=== PATIENT | female | born 1930 | race Caucasian/White ===

== ENCOUNTER 2017-05-19 19:43 | Emergency (ER) | payer MEDICARE, MEDICAID ==
[2017-05-19] MEDS ORDERED: LIDOCAINE 5% (700 MG) TRANSDERMAL ADH..PATCH TP ONE (20:11)
--- NOTE | 2017-05-19 20:11 | ER Document Report ---
ED Medical Screen (RME) - General Chief Complaint: Fall Stated Complaint: FALL/BACK PAIN Time Seen by Provider: 05/19/17 20:09 TRAVEL OUTSIDE OF THE [place] IN LAST 30 DAYS: No - HPI Notes: 05/19/17 20:10 Patient with a trip and fall seen at urgent care sent to the ER for a CT scan of her back due to pain - Related Data Allergies/Adverse Reactions: No Known Allergies Allergy (Verified 05/19/17 19:52) Past Medical History - Past Medical History Cardiac Medical History: Reports: Hx Coronary Artery Disease, Hx Hypercholesterolemia, Hx Hypertension Denies: Hx Heart Attack Pulmonary Medical History: Denies: Hx Asthma, Hx Bronchitis, Hx COPD, Hx Pneumonia, Hx Tuberculosis Neurological Medical History: Denies: Hx Cerebrovascular Accident, Hx Seizures Renal/ Medical History: Denies: Hx Peritoneal Dialysis GI Medical History: Reports: Hx Gastroesophageal Reflux Disease. Denies: Hx Hepatitis, Hx Hiatal Hernia, Hx Ulcer Musculoskeltal Medical History: Reports Hx Arthritis Infectious Medical History: Denies: Hx Hepatitis Past Surgical History: Denies: Hx Hysterectomy, Hx Mastectomy, Hx Open Heart Surgery, Hx Pacemaker - Immunizations Hx Diphtheria, Pertussis, Tetanus Vaccination: Yes Review of Systems - Review of Systems Musculoskeletal: Back pain Physical Exam - Vital signs Vitals: Temp Pulse Resp BP Pulse Ox 98.1 F 60 16 153/61 H 94 05/19/17 19:52 05/19/17 19:52 05/19/17 19:52 05/19/17 19:52 05/19/17 19:52 - General General appearance: Appears well In distress: None Course - Vital Signs Vital signs: Temp Pulse Resp BP Pulse Ox 98.1 F 60 16 153/61 H 94 05/19/17 19:52 05/19/17 19:52 05/19/17 19:52 05/19/17 19:52 05/19/17 19:52
--- NOTE | 2017-05-19 20:42 | RADIOLOGY REPORT (SQ) ---
EXAM DESCRIPTION: CT LUMBAR SPINE WITHOUT COMPLETED DATE/TIME: 05/19/2017 8:31 pm REASON FOR STUDY: back pain COMPARISON: None. TECHNIQUE: Axial images acquired through the lumbar spine without intravenous contrast. Images revi ewed with lung, soft tissue and bone windows. Reconstructed coronal and sagittal MPR images reviewed . All images stored on PACS. All CT scanners at this facility use dose modulation, iterative reconstruction, and/or weight based d osing when appropriate to reduce radiation dose to as low as reasonably achievable (ALARA). [facility]: Dose Right [facility]: CareDose [facility]: Dose Right [facility]: Teradose 4D [facility]: [employer] RADIATION DOSE: mGy. LIMITATIONS: None. FINDINGS: SEGMENTATION: Normal. No transitional anatomy. ALIGNMENT: Normal. VERTEBRAL BODIES: Acute compression fracture involving the superior endplate of L1. Approximately 20 % loss of height. There is no encroachment of the spinal canal. The remainder of the lumbar vertebr ae are intact. DISCS: Disc space narrowing with vacuum change and osteophytes, most pronounced in the lower lumbar s pine. There is broad-based posterior disc bulging, in combination with facet arthropathy resulting i n spinal stenosis at L3-L4, L4-L5, and L5-S1. PEDICLES, TRANSVERSE PROCESSES: No fractures. No dislocation. No acute findings. FACETS, POSTERIOR ELEMENTS: No fractures. No dislocation. Facet arthropathy particularly in the low er lumbar spine. HARDWARE: None in the spine. VISUALIZED RIBS: No fractures. SOFT TISSUES: No significant or acute finding in adjacent soft tissues. OTHER: No other significant finding. IMPRESSION: 1. ACUTE COMPRESSION FRACTURE INVOLVING THE SUPERIOR ENDPLATE OF L1 WITH APPROXIMATELY 20% LOSS OF HE IGHT. NO ENCROACHMENT OF THE SPINAL CANAL. 2. CHRONIC DEGENERATIVE CHANGES. TECHNICAL DOCUMENTATION: JOB ID: [id number] Quality ID # [id number]: Final reports with documentation of one or more dose reduction techniques (e.g., Au tomated exposure control, adjustment of the mA and/or kV according to patient size, use of iterative reconstruction technique) 2010 [employer]- All Rights Reserved
[2017-05-19] MEDS ORDERED: HYDROCODONE/ACETAMINOPHEN 5-325 MG 6 TAB/DSPK PO PRN (21:01)
--- NOTE | 2017-05-19 21:01 | ER Document Report ---
ED Fall - General Mode of Arrival: Ambulatory Information source: Patient TRAVEL OUTSIDE OF THE [place] IN LAST 30 DAYS: No - HPI Patient complains to provider of: Lower Back Pain Occurred: This afternoon Where: Outdoors Context: Tripped Associated symptoms: Other - see notes above <JORGE BARAHONA - Last Filed: 05/19/17 21:03> <ALEKS HOPKINS - Last Filed: 05/19/17 22:29> - General Chief Complaint: Fall Stated Complaint: FALL/BACK PAIN Time Seen by Provider: 05/19/17 20:50 Notes: 86 year old female with history of arthritis presents to the ED complaining of lower back pain that started earlier this afternoon after tripping over her doorstep. Patient denies loss of consciousness or head trauma. Patient reports that her pain is well controlled. (JORGE BARAHONA) - Related data Allergies/Adverse Reactions: No Known Allergies Allergy (Verified 05/19/17 19:52) Past Medical History - General Information source: Patient - Social History Smoking Status: Never Smoker Chew tobacco use (# tins/day): No Frequency of alcohol use: None Drug Abuse: None Family History: Reviewed & Not Pertinent Patient has suicidal ideation: No Patient has homicidal ideation: No - Past Medical History Cardiac Medical History: Reports: Hx Coronary Artery Disease, Hx Hypercholesterolemia, Hx Hypertension Denies: Hx Heart Attack Pulmonary Medical History: Denies: Hx Asthma, Hx Bronchitis, Hx COPD, Hx Pneumonia, Hx Tuberculosis Neurological Medical History: Denies: Hx Cerebrovascular Accident, Hx Seizures Renal/ Medical History: Denies: Hx Peritoneal Dialysis GI Medical History: Reports: Hx Gastroesophageal Reflux Disease. Denies: Hx Hepatitis, Hx Hiatal Hernia, Hx Ulcer Musculoskeltal Medical History: Reports Hx Arthritis Infectious Medical History: Denies: Hx Hepatitis Surgical Hx: Negative Past Surgical History: Denies: Hx Hysterectomy, Hx Mastectomy, Hx Open Heart Surgery, Hx Pacemaker - Immunizations Hx Diphtheria, Pertussis, Tetanus Vaccination: Yes Hx Pneumococcal Vaccination: 08/30/09 <JORGE BARAHONA - Last Filed: 05/19/17 21:03> Review of Systems - Review of Systems Constitutional: No symptoms reported EENT: No symptoms reported Cardiovascular: No symptoms reported Respiratory: No symptoms reported Gastrointestinal: No symptoms reported Genitourinary: No symptoms reported Female Genitourinary: No symptoms reported Musculoskeletal: See HPI, Back pain - lower Skin: No symptoms reported Hematologic/Lymphatic: No symptoms reported Neurological/Psychological: No symptoms reported. denies: Lost consciousness -: Yes All other systems reviewed and negative <JORGE BARAHONA - Last Filed: 05/19/17 21:03> Physical Exam - General General appearance: Alert In distress: None - HEENT Head: Normocephalic, Atraumatic Eyes: Normal Extraocular movements intact: Yes Pupils: PERRL - Respiratory Respiratory status: No respiratory distress Breath sounds: Normal - Cardiovascular Rhythm: Regular Heart sounds: Normal auscultation - Abdominal Inspection: Normal - Back Back: Tender - Tenderness to palpation over L1 - Extremities General upper extremity: Normal inspection, Normal ROM General lower extremity: Normal inspection, Normal ROM - Neurological Neuro grossly intact: Yes Cognition: Normal Orientation: AAOx4 Kenny Coma Scale Eye Opening: Spontaneous Kenny Coma Scale Verbal: Oriented Kenny Coma Scale Motor: Obeys Commands [place] Coma Scale Total: 15 Speech: Normal - Psychological Associated symptoms: Normal affect, Normal mood - Skin Skin Temperature: Warm Skin Moisture: Dry Skin Color: Normal <JORGE BARAHONA - Last Filed: 05/19/17 21:03> Course <JORGE BARAHONA - Last Filed: 05/19/17 21:03> - Diagnostic Test Radiology reviewed: Reports reviewed <ALEKS HOPKINS - Last Filed: 05/19/17 22:29> - Re-evaluation Re-evalutation: 05/19/17 Patient is an 86-year-old female who tripped and fell. Patient has point tenderness and complains of pain over L1. States that Lidoderm patch is working well. Patient is unsure if she is supposed to take pain medication. She will ask her doctor tomorrow. Patient is neurovascularly intact. No other injuries. Stable for discharge. Return if any worsening or concerning symptoms. Patient and family understand and agree with this plan. (ALEKS HOPKINS) - Vital Signs Vital signs: Temp Pulse Resp BP Pulse Ox 97.4 F 59 L 13 148/73 H 95 05/19/17 21:00 05/19/17 21:00 05/19/17 21:00 05/19/17 21:00 05/19/17 21:00 Discharge <JORGE BARAHONA - Last Filed: 05/19/17 21:03> <ALEKS HOPKINS - Last Filed: 05/19/17 22:29> - Discharge Clinical Impression: Vertebral fracture, closed Qualifiers: Encounter type: initial encounter Fracture of vertebra location: lumbar Lumbar vertebra fracture level: L1 Fracture morphology: wedge compression Qualified Code(s): S32.010A - Wedge compression fracture of first lumbar vertebra, initial encounter for closed fracture Condition: Stable Disposition: HOME, SELF-CARE Instructions: Back Injury with Fracture ([facility]) Additional Instructions: Please follow-up with your doctor tomorrow. Please take a copy of the report with you. Prescriptions: Oxycodone HCl/Acetaminophen [Percocet 5-325 mg Tablet] 1 tab PO Q8HP PRN #15 tablet PRN Reason: Lidocaine [Lidoderm 5% (700 mg) Transdermal Patch] 1 patch TP DAILY #30 adh..patch Scribe Attestation: 05/19/17 22:28 I personally performed the services described in the documentation, reviewed and edited the documentation which was dictated to the scribe in my presence, and it accurately records my words and actions. (ALEKS HOPKINS) Scribe Documentation - Scribe Written by Joanneibe:: Marcel Casas, [id number] acting as scribe for :: Madhu <JORGE BARAHONA - Last Filed: 05/19/17 21:03>
[2017-05-19 22:18] VITALS: BP 148/73
== END 2017-05-19 21:15 | disposition home or self-care (01) ==
LOC: ER 19:43
DX: S32.010A Wedge compression fracture of first lumbar vertebra, initial encounter for closed fracture (principal); W01.0XXA Fall on same level from slipping, tripping and stumbling without subsequent striking against object, initial encounter; I25.10 Atherosclerotic heart disease of native coronary artery without angina pectoris; I10 Essential (primary) hypertension
CPT/HCPCS: 99283; 72131; A9270

== ENCOUNTER 2017-05-24 10:48 | Inpatient (IN) | payer MEDICARE, MEDICAID ==
[2017-05-24] MEDS ORDERED: IBUPROFEN 600 MG TABLET PO ONE (11:03)
[2017-05-24] MEDS ORDERED: OXYCODONE-ACETAMINOPHEN 5-325 MG TABLET PO ONE (11:03)
--- NOTE | 2017-05-24 11:03 | ER Document Report ---
ED GI/ - General Chief Complaint: Urinary Problem Stated Complaint: BACK PAIN,BLOOD IN URINE Time Seen by Provider: 05/24/17 10:57 Notes: The patient is an 86-year-old female, past medical history hypertension, L1 compression fracture last week after fall, on Brillinta for ?A.fib?, Presents with worsening left flank pain and 2 days of hematuria. She is taking Percocet for her pain control saw her primary care physician who has referred her to a data warehousing specialist for her compression fracture. Patient denies nausea, vomiting , syncope, numbness, tingling, diarrhea, constipation, headache or dysuria. TRAVEL OUTSIDE OF THE [place] IN LAST 30 DAYS: No - Related Data Allergies/Adverse Reactions: No Known Allergies Allergy (Verified 05/24/17 10:52) Past Medical History - General Information source: Patient - Social History Smoking Status: Never Smoker Family History: Reviewed & Not Pertinent Patient has suicidal ideation: No Patient has homicidal ideation: No - Past Medical History Cardiac Medical History: Reports: Hx Coronary Artery Disease, Hx Hypercholesterolemia, Hx Hypertension Denies: Hx Heart Attack Pulmonary Medical History: Denies: Hx Asthma, Hx Bronchitis, Hx COPD, Hx Pneumonia, Hx Tuberculosis Neurological Medical History: Denies: Hx Cerebrovascular Accident, Hx Seizures Renal/ Medical History: Denies: Hx Peritoneal Dialysis GI Medical History: Reports: Hx Gastroesophageal Reflux Disease. Denies: Hx Hepatitis, Hx Hiatal Hernia, Hx Ulcer Musculoskeltal Medical History: Reports Hx Arthritis Infectious Medical History: Denies: Hx Hepatitis Past Surgical History: Denies: Hx Hysterectomy, Hx Mastectomy, Hx Open Heart Surgery, Hx Pacemaker - Immunizations Hx Diphtheria, Pertussis, Tetanus Vaccination: Yes Hx Pneumococcal Vaccination: 08/30/09 Review of Systems - Review of Systems Notes: REVIEW OF SYSTEMS: CONSTITUTIONAL: -fevers, -chills EENT: -eye pain, -difficulty swallowing, -nasal congestion CARDIOVASCULAR:-chest pain, -syncope. RESPIRATORY: -cough, -SOB GASTROINTESTINAL: -abdominal pain, - nausea, -vomiting, -diarrhea GENITOURINARY: -dysuria, +hematuria MUSCULOSKELETAL: +back pain, -neck pain SKIN: -rash or skin lesions. HEMATOLOGIC: -easy bruising or bleeding. LYMPHATIC: -swollen, enlarged glands. NEUROLOGICAL: -altered mental status or loss of consciousness, -headache, - neurologic symptoms PSYCHIATRIC: -anxiety, -depression. ALL OTHER SYSTEMS REVIEWED AND NEGATIVE. Physical Exam - Vital signs Vitals: Temp Pulse Resp BP Pulse Ox 97.5 F 66 16 109/62 99 05/24/17 10:53 05/24/17 10:53 05/24/17 10:53 05/24/17 10:53 05/24/17 10:53 - Notes Notes: PHYSICAL EXAMINATION: GENERAL: Well-appearing, well-nourished and in no acute distress. HEAD: Atraumatic, normocephalic. EYES: Pupils equal round and reactive to light, extraocular movements intact, sclera anicteric, conjunctiva are normal. ENT: nares patent, oropharynx clear without exudates. Moist mucous membranes. NECK: Normal range of motion, supple without lymphadenopathy LUNGS: Breath sounds clear to auscultation bilaterally and equal. No wheezes rales or rhonchi. HEART: Regular rate and rhythm without murmurs ABDOMEN: Soft, nontender, normoactive bowel sounds. No guarding, no rebound. No masses appreciated. BACK: Midline lumbar tenderness, mild left CVA tenderness, no ecchymosis EXTREMITIES: Normal range of motion, no pitting or edema. No cyanosis. NEUROLOGICAL: Cranial nerves grossly intact. Normal speech, normal gait. Normal sensory and motor exams. PSYCH: Normal mood, normal affect. SKIN: Warm, Dry, normal turgor, no rashes or lesions noted. Course - Re-evaluation Re-evalutation: With leukocytosis and CT exam findings, patient was moved back to the main ER for further evaluation. I have greeted and performed a rapid initial assessment of this patient. A comprehensive ED assessment and evaluation of the patient, analysis of test results and completion of the medical decision making process will be conducted by additional ED providers. - Vital Signs Vital signs: Temp Pulse Resp BP Pulse Ox 97.5 F 66 16 109/62 99 05/24/17 10:53 05/24/17 10:53 05/24/17 10:53 05/24/17 10:53 05/24/17 10:53 - Laboratory Result Diagrams: 05/24/17 11:27 05/24/17 11:27 Laboratory results interpreted by me: 05/24/17 05/24/17 05/24/17 11:27 11:27 14:10 WBC 24.8 H Band Neutrophils % 7 H Lymphocytes % (Manual) 3 L Monocytes % (Manual) 16 H Abs Neuts (Manual) 20.1 H Abs Monocytes (Manual) 4.0 H Sodium 135.8 L Chloride 97 L Carbon Dioxide 21 L BUN 44 H Creatinine 2.29 H Est GFR ( Amer) 25 L Est GFR (Non-Af Amer) 20 L Glucose 195 H AST 72 H ALT 124 H Alkaline Phosphatase 145 H Lipase 19.8 L Urine Ketones TRACE H Urine Blood SMALL H Urine Ascorbic Acid 40 H Discharge - Discharge Clinical Impression: Colitis presumed to be due to infection, Vertebral fracture, closed Condition: Good Disposition: ADMITTED INPATIENT
[2017-05-24 12:00] LABS: HEMATOCRIT 41.7 % (36.0-47.0); HEMOGLOBIN 13.4 g/dL (12.0-15.5); HGB HCT DIFFERENCE -1.5; MEAN CORPUSCULAR HEMOGLOBIN 29.7 pg (27.0-33.4); MEAN CORPUSCULAR HGB CONC 32.1 g/dL (32.0-36.0); MEAN CORPUSCULAR VOLUME 93 fl (80-97); RED CELL DISTRIBUTION WIDTH 12.9 % (11.5-14.0); WHITE BLOOD COUNT 24.8 10^3/uL (4.0-10.5)
[2017-05-24 12:01] LABS: ALANINE AMINOTRANSFERASE 124 U/L (9-52); ALKALINE PHOSPHATASE 145 U/L (38-126); ANION GAP 18 (5-19); ASPARTATE AMINO TRANSFERASE 72 U/L (14-36); BILIRUBIN,DIRECT 0.4 mg/dL (0.0-0.4); BILIRUBIN,TOTAL 0.9 mg/dL (0.2-1.3); BLOOD UREA NITROGEN 44 mg/dL (7-20); CALCIUM 9.3 mg/dL (8.4-10.2); CARBON DIOXIDE 21 mmol/L (22-30); CHLORIDE 97 mmol/L (98-107); CREATININE RESULT 2.29 mg/dL (0.52-1.25); GLUCOSE 195 mg/dL (75-110); LIPASE 19.8 U/L (23-300); POTASSIUM 4.4 mmol/L (3.6-5.0); SODIUM 135.8 mmol/L (137-145); TOTAL PROTEIN 7.1 g/dL (6.3-8.2)
[2017-05-24 12:29] LABS: BAND NEUTROPHILS % (MANUAL) 7 % (3-5); BASOPHILS % (MANUAL) 0 % (0-2); EOSINOPHILS % (MANUAL) 0 % (0-6); LYMPHOCYTES % (MANUAL) 3 % (13-45); NUCLEATED RED BLOOD CELLS 1 /100 WBC (0); TOTAL CELLS COUNTED 100
[2017-05-24 12:30] LABS: POLYCHROMASIA SLIGHT; TOXIC GRANULATION SLIGHT; TOXIC VACUOLATION PRESENT
--- NOTE | 2017-05-24 13:04 | RADIOLOGY REPORT (SQ) ---
EXAM DESCRIPTION: CT ABD/PELVIS NO ORAL OR IV COMPLETED DATE/TIME: 05/24/2017 12:43 pm REASON FOR STUDY: left flank pain COMPARISON: Lumbar spine CT from several days ago. TECHNIQUE: CT scan of the abdomen and pelvis performed without intravenous or oral contrast. Images reviewed with lung, soft tissue, and bone windows. Reconstructed coronal and sagittal MPR images revi ewed. All images stored on PACS. All CT scanners at this facility use dose modulation, iterative reconstruction, and/or weight based d osing when appropriate to reduce radiation dose to as low as reasonably achievable (ALARA). [facility]: Dose Right [facility]: CareDose [facility]: Dose Right [facility]: Teradose 4D [facility]: [employer] RADIATION DOSE: Up-to-date CT equipment and radiation dose reduction techniques were employed. CTDIv ol: 9.9 mGy. DLP: 555 mGy-cm.mGy. LIMITATIONS: None. FINDINGS: LOWER CHEST: Minimal reticulonodular infiltrates in the lower lobes, acuity indeterminate. NON-CONTRASTED LIVER, SPLEEN, ADRENALS: Liver and spleen generally unremarkable. Minimal nodular thi ckening in the left adrenal without discrete mass. PANCREAS: No masses. No peripancreatic inflammatory changes. GALLBLADDER: Gallbladder distention without overt wall thickening or pericholecystic fluid. At least 1 calcified gallstone. RIGHT KIDNEY AND URETER: No solid masses. No significant calcification. No hydronephrosis or hydroure ter. LEFT KIDNEY AND URETER: No solid masses. No significant calcification. No hydronephrosis or hydrouret er. AORTA AND RETROPERITONEUM: Dense aortic calcification without aneurysm. No retroperitoneal mass or a denopathy. BOWEL AND PERITONEAL CAVITY: Pronounced wall thickening with mild pericolonic fat stranding. This in volves the majority of the transverse colon, splenic flexure and proximal descending colon. No sugge stion of significant diverticular disease through these areas. No dilated small bowel loops. No asc ites or adenopathy. APPENDIX: Normal. PELVIS, BLADDER, AND ABDOMINAL WALL:Numerous calcified phleboliths. No gross bladder mass or stones. BONES: Known L1 mild compression fracture. OTHER: No other significant finding. IMPRESSION: 1. Extensive colitis, predominantly in the transverse colon and proximal descending colo n. Differential includes infectious/ inflammatory and vascular etiologies. No significant diverticu losis through this area. 2. Cholelithiasis with distended gallbladder. 3. Atherosclerosis. 4. Know n L1 recent compression fracture. TECHNICAL DOCUMENTATION: JOB ID: [id number] Quality ID # [id number]: Final reports with documentation of one or more dose reduction techniques (e.g., Au tomated exposure control, adjustment of the mA and/or kV according to patient size, use of iterative reconstruction technique) 2010 [employer]]- All Rights Reserved
[2017-05-24] MEDS ORDERED: CIPROFLOXACIN 400 MG/D5W RTU 200 ML IV ONE (13:20)
[2017-05-24] MEDS ORDERED: METRONIDAZOLE 500 MG/NS RTU 100 ML IV ONE (13:20)
--- NOTE | 2017-05-24 14:12 | ER Document Report ---
ED GI/ - General Chief Complaint: Urinary Problem Stated Complaint: BACK PAIN,BLOOD IN URINE Time Seen by Provider: 05/24/17 10:57 Mode of Arrival: Ambulatory Information source: Patient TRAVEL OUTSIDE OF THE [place] IN LAST 30 DAYS: No - HPI Patient complains to provider of: Hematuria, Other - BACK PAIN Onset: This morning Timing/Duration: Sudden Quality of pain: Dull, Sharp - W/ MOVEMENT Severity at maximum: Severe Severity in ED: Moderate Context: Other - KNOWN RECENT Fx T-11 Location: Low back Associated symptoms: Hematuria, Loss of appetite. denies: Chills, Diarrhea, Fever, Nausea Exacerbated by: Movement Relieved by: Remaining still Similar symptoms previously: No Recently seen / treated by doctor: Yes - OMKorin E.DShiv - Related Data Allergies/Adverse Reactions: No Known Allergies Allergy (Verified 05/24/17 10:52) Past Medical History - General Information source: Patient - Social History Smoking Status: Never Smoker Cigarette use (# per day): No Chew tobacco use (# tins/day): No Frequency of alcohol use: None Drug Abuse: None Lives with: Family Family History: Reviewed & Not Pertinent Patient has suicidal ideation: No Patient has homicidal ideation: No - Past Medical History Cardiac Medical History: Reports: Hx Coronary Artery Disease, Hx Hypercholesterolemia, Hx Hypertension Denies: Hx Heart Attack Pulmonary Medical History: Denies: Hx Asthma, Hx Bronchitis, Hx COPD, Hx Pneumonia, Hx Tuberculosis Neurological Medical History: Denies: Hx Cerebrovascular Accident, Hx Seizures Renal/ Medical History: Denies: Hx Peritoneal Dialysis GI Medical History: Reports: Hx Gastroesophageal Reflux Disease. Denies: Hx Hepatitis, Hx Hiatal Hernia, Hx Ulcer Musculoskeltal Medical History: Reports Hx Arthritis Infectious Medical History: Denies: Hx Hepatitis Past Surgical History: Denies: Hx Hysterectomy, Hx Mastectomy, Hx Open Heart Surgery, Hx Pacemaker - Immunizations Hx Diphtheria, Pertussis, Tetanus Vaccination: Yes Hx Pneumococcal Vaccination: 08/30/09 Review of Systems - Review of Systems Constitutional: No symptoms reported EENT: No symptoms reported Cardiovascular: No symptoms reported Respiratory: No symptoms reported Gastrointestinal: See HPI Genitourinary: See HPI Female Genitourinary: No symptoms reported Musculoskeletal: See HPI Skin: No symptoms reported Neurological/Psychological: No symptoms reported Physical Exam - Vital signs Vitals: Temp Pulse Resp BP Pulse Ox 97.5 F 66 16 109/62 99 07/04/17 10:53 05/24/17 10:53 05/24/17 10:53 05/24/17 10:53 05/24/17 10:53 Interpretation: Normal. No: Tachycardic, Tachypneic, Febrile - General General appearance: Appears well, Alert In distress: None - HEENT Head: Normocephalic Eyes: Normal Conjunctiva: Normal Ears: Normal Nasal: Normal Mouth/Lips: Normal Mucous membranes: Normal Neck: Normal - Respiratory Respiratory status: No respiratory distress Breath sounds: Normal - Cardiovascular Rhythm: Regular - Abdominal Inspection: Normal Distension: No distension Bowel sounds: Hypoactive Tenderness: Tender - SLIGHT, UPPER & L. SIDE - Extremities General upper extremity: Normal inspection General lower extremity: Normal inspection - Neurological Neuro grossly intact: Yes Cognition: Normal Orientation: AAOx4 - Psychological Associated symptoms: Normal affect, Normal mood - Skin Skin Temperature: Warm Skin Moisture: Dry Skin Color: Normal Skin Turgor: Elastic Course - Vital Signs Vital signs: Temp Pulse Resp BP Pulse Ox 97.5 F 66 16 109/62 99 05/24/17 10:53 05/24/17 10:53 05/24/17 10:53 05/24/17 10:53 05/24/17 10:53 - Laboratory Result Diagrams: 05/24/17 11:27 05/24/17 11:27 Laboratory results interpreted by me: 05/24/17 05/24/17 05/24/17 11:27 11:27 14:10 WBC 24.8 H Band Neutrophils % 7 H Lymphocytes % (Manual) 3 L Monocytes % (Manual) 16 H Abs Neuts (Manual) 20.1 H Abs Monocytes (Manual) 4.0 H Sodium 135.8 L Chloride 97 L Carbon Dioxide 21 L BUN 44 H Creatinine 2.29 H Est GFR ( Amer) 25 L Est GFR (Non-Af Amer) 20 L Glucose 195 H AST 72 H ALT 124 H Alkaline Phosphatase 145 H Lipase 19.8 L Urine Ketones TRACE H Urine Blood SMALL H Urine Ascorbic Acid 40 H - Consults DR. FINK Time consulted: 15:35 Consulted provider: will come to ER Discharge - Discharge Clinical Impression: Colitis presumed to be due to infection Vertebral fracture, closed Qualifiers: Encounter type: initial encounter Fracture of vertebra location: lumbar Lumbar vertebra fracture level: L1 Fracture morphology: wedge compression Qualified Code(s): S32.010A - Wedge compression fracture of first lumbar vertebra, initial encounter for closed fracture Condition: Good Disposition: ADMITTED INPATIENT Admitting Provider: Hospitalist Unit Admitted: IMCU Referrals: CHRIS CLANCY MD [Primary Care Provider] - Follow up as needed
[2017-05-24 14:53] LABS: APPEARANCE,URINE SLIGHTLY-CLOUDY; BILIRUBIN,URINE NEGATIVE (NEGATIVE); GLUCOSE, URINE NEGATIVE (NEGATIVE); KETONES,URINE TRACE mg/dL (NEGATIVE); LEUKOCYTE ESTERASE,URINE NEGATIVE (NEGATIVE); NITRITE,URINE NEGATIVE (NEGATIVE); PROTEIN,URINE NEGATIVE (NEGATIVE); URINE SPECIFIC GRAVITY 1.019; UROBILINOGEN,URINE NEGATIVE mg/dL (<2.0)
[2017-05-24] MEDS ORDERED: ACETAMINOPHEN 325 MG TABLET PO PRN (16:44)
[2017-05-24] MEDS ORDERED: OXYCODONE-ACETAMINOPHEN 5-325 MG TABLET PO PRN (16:44)
[2017-05-24] MEDS ORDERED: TEMAZEPAM 15 MG CAPSULE PO PRN (16:44)
[2017-05-24] MEDS ORDERED: MAGNESIUM HYDROXIDE SUSP 30 ML UDCUP PO PRN (16:44)
[2017-05-24] MEDS ORDERED: ONDANSETRON HCL INJ/PF 4 MG/2 ML SDV IV PRN (16:44)
[2017-05-24] MEDS ORDERED: TEMAZEPAM 7.5 MG CAPSULE PO PRN (16:44)
--- NOTE | 2017-05-24 16:44 | PDOC H&P ---
History of Present Illness Admission Date/PCP: 05/24/17 16:12 [facility] Patient complains of: Blood in her underwear. History of Present Illness: SHOAIB NICOLAS is a 86 year old female presented to the hospital with 2 episodes of bright red blood that appeared in her underwear. She is fairly certain that this happened with urination. She does not think that this is vaginal bleeding or rectal bleeding. She also presents with pain in her lower back. She tripped and fell last . She came to the emergency department and had a CT scan and was told that she had a compression fracture. She was discharged on medications for pain. She then developed nausea with vomiting after starting the pain pills. She has not been able to eat or drink. Pills are not working for her back. Yesterday, she went to see her physician and had 2 soft stools but no diarrhea since. She has not had any fevers, chills , sweats. She actually denies abdominal pain. She states that she has chronically been incontinent but she feels like she might be urinating less. Past Medical History Cardiac Medical History: Reports: Coronary Artery Disease, Hyperlipidema, Hypertension Denies: Myocardial Infarction Pulmonary Medical History: Denies: Asthma, Bronchitis, Chronic Obstructive Pulmonary Disease (COPD), Pneumonia, Tuberculosis Neurological Medical History: Denies: Seizures GI Medical History: Reports: Gastroesophageal Reflux Disease Denies: Hepatitis, Hiatal Hernia Musculoskeltal Medical History: Reports: Arthritis Hematology: Denies: Anemia, Sickle Cell Disease Past Surgical History Past Surgical History: Denies: Amputation, Hysterectomy, Mastectomy, Pacemaker Social History Lives with: Family Smoking Status: Never Smoker Hx Recreational Drug Use: No Hx Prescription Drug Abuse: No Family History Family History: Reviewed & Not Pertinent Parental Family History Reviewed: Yes - Father HTN and heart disease Children Family History Reviewed: NA Sibling(s) Family History Reviewed.: NA Medication/Allergy Home Medications: Chlorthalidone [Chlorthalidone 25 mg Tablet] 25 mg PO 02/20/12 Dabigatran Etexilate Mesylate [Pradaxa 75 Mg Capsule] 75 mg PO 02/20/12 Diltiazem HCl [Dilt-Cd] 240 mg PO DAILY 02/20/12 Lisinopril [Prinivil 40 mg Tablet] 40 mg PO DAILY 02/20/12 Metoprolol Tartrate [Lopressor 50 mg Tablet] 50 mg PO 02/20/12 Omeprazole [Prilosec] 20 mg PO DAILY 02/20/12 Rosuvastatin Calcium [Crestor] 10 mg PO DAILY 02/20/12 Simvastatin [Zocor 10 mg Tablet] 10 mg PO QHS 02/20/12 Alendronate Sodium [Fosamax] 70 mg PO 07/07/12 Lidocaine [Lidoderm 5% (700 mg) Transdermal Patch] 1 patch TP DAILY #30 adh..patch 05/19/17 Oxycodone HCl/Acetaminophen [Percocet 5-325 mg Tablet] 1 tab PO Q8HP PRN #15 tablet 05/19/17 Allergies/Adverse Reactions: No Known Allergies Allergy (Verified 05/24/17 10:52) Review of Systems Constitutional: PRESENT: anorexia, fatigue Cardiovascular: PRESENT: palpitations Musculoskeletal: PRESENT: back pain Physical Exam Vital Signs: Temp Pulse Resp BP Pulse Ox 97.5 F 66 16 109/62 99 05/24/17 10:53 05/24/17 10:53 05/24/17 10:53 05/24/17 10:53 05/24/17 10:53 General appearance: PRESENT: no acute distress, cooperative Head exam: PRESENT: atraumatic Eye exam: PRESENT: EOMI Mouth exam: PRESENT: moist, neck supple, tongue midline Respiratory exam: PRESENT: crackles Cardiovascular exam: PRESENT: RRR GI/Abdominal exam: PRESENT: normal bowel sounds, soft Rectal exam: PRESENT: deferred Musculoskeletal exam: PRESENT: ambulatory Neurological exam: PRESENT: alert, awake Additional comments: Patient has multiple skin lesions on her face. She recently had several possible skin cancers removed on her face. Results Impressions: Abdomen/Pelvis CT 05/24/17 12:25 IMPRESSION: 1. Extensive colitis, predominantly in the transverse colon and proximal descending colon. Differential includes infectious/ inflammatory and vascular etiologies. No significant diverticulosis through this area. 2. Cholelithiasis with distended gallbladder. 3. Atherosclerosis. 4. Known L1 recent compression fracture. Assessment & Plan - Diagnosis (1) Leucocytosis Is this a current diagnosis for this admission?: Yes (2) Hematuria Is this a current diagnosis for this admission?: Yes (3) Colitis presumed to be due to infection Is this a current diagnosis for this admission?: Yes (4) Vertebral fracture, closed Qualifiers: Encounter type: initial encounter Fracture of vertebra location: lumbar Lumbar vertebra fracture level: L1 Fracture morphology: wedge compression Qualified Code(s): S32.010A - Wedge compression fracture of first lumbar vertebra, initial encounter for closed fracture Is this a current diagnosis for this admission?: Yes - Time Time Spent: 30 to 50 Minutes Medications reviewed and adjusted accordingly: Yes Anticipated discharge: Home Within: within 72 hours - Inpatient Certification Medical Necessity: Need for IV Antibiotics - Plan Summary Plan Summary: We will need to be admitted to the hospital for intravenous antibiotics. I will continue ciprofloxacin and Flagyl. However, the differential diagnosis certainly does include ischemic colitis. She will need a mesenteric Doppler. Vascular surgery will be involved when available. I am concerned that the hematuria may actually be bright red blood from her rectum. A rectal exam will be performed if not already done. Urinalysis will be sent for microscopic exam and culture. Blood cultures will be drawn. The patient will be made n.p.o. until she is better. Her prognosis is fair.
[2017-05-24] MEDS ORDERED: 1/2 NORMAL SALINE 1,000 ML IV PRN (17:05)
[2017-05-24] MEDS: METRONIDAZOLE 500 MG/NS RTU 100 ML IV SCH (18:54)
[2017-05-24] MEDS: CIPROFLOXACIN 400 MG/D5W RTU 400 MG/200 ML RTUPB IV SCH (21:27)
[2017-05-24] MEDS ORDERED: NORMAL SALINE 1000 ML 1,000 ML IV PRN (21:37)
[2017-05-24] MEDS ORDERED: NORMAL SALINE 1000 ML 1,000 ML IV ONE (21:45)
[2017-05-24] MEDS ORDERED: ATORVASTATIN CALCIUM 20 MG TABLET PO SCH (22:00)
--- NOTE | 2017-05-24 22:58 | CONSULTATION REPORT E ---
Consultation Report NAME: SHOAIB NICOLAS : 1930 AGE: 86Y DATE: 05/24/2017 ROOM: 302 A TO: YOUNG COOPER M.D. FROM: RACQUEL ANDREW M.D. Requesting Physician REASON FOR CONSULTATION: Thank you for asking me to see this 86-year-old female who has a history of fall a week ago as she tripped on a porch. She sustained a back fracture. Subsequently the patient has been complaining of generalized malaise, abdomen discomfort. The patient reports she had 1-2 bowel movements with diarrhea as well as blood. She was seen in the emergency room today and an abdominal and pelvis CT scan was done revealing the presence of diffuse transverse and descending colitis. I was consulted because of the above symptoms and findings Currently, the patient complains of poor appetite. She reports mild abdominal left-sided pain. Denies nausea, vomiting. She has had 2 bowel movement with bright blood per rectum today. PAST MEDICAL HISTORY: Coronary artery disease, hyperlipidemia, hypertension, bronchitis, COPD, pneumonia, history of TB, GERD, arthritis, atrial fibrillation. SOCIAL HISTORY: She lives with family. She denies abuse of alcohol, drugs, or tobacco. FAMILY HISTORY: Has been investigated and is noncontributory to her current condition. However, her father suffered from hypertension and heart disease. MEDICATIONS: Home medications include chlortalidone at 25 mg p.o. daily, Pradaxa 75 mg p.o. daily, diltiazem 240 mg p.o. daily, lisinopril 40 mg p.o. daily, metoprolol 50 mg p.o. daily, omeprazole 20 mg p.o. daily, Crestor 10 mg p.o. daily, Zocor 10 mg p.o. at bedtime, Fosamax 70 mg p.o. weekly, lidocaine 5% transdermal patch to be used p.r.n. to the back. ALLERGIES: None. REVIEW OF SYSTEMS: Is significant for atrial fibrillation, back pain, hypertension, hypercholesterolemia, osteoporosis. PHYSICAL EXAMINATION: HEENT: Second through XII cranial nerves are normal. NECK: Supple without masses. CHEST: Symmetric bilaterally. LUNGS: Clear to auscultation bilaterally. HEART: Regular rate and rhythm. ABDOMEN: Obese, slightly distended, tender in the left upper quadrant. Positive bowel sounds. No peritoneal signs identified. EXTREMITIES: Upper and lower extremities are equal, symmetric bilaterally without masses. NEUROLOGICAL SYSTEM: Equal, symmetric bilaterally without deficits. REVIEW OF LABORATORIES: CT scan abdomen and pelvis reveals extensive colitis, predominantly in the transverse colon and proximal descending colon with cholelithiasis. White blood cell count 24.8, H and H 13 and 41 respectively, and platelet count 169. Urinalysis shows trace of ketones, otherwise is overall negative. Electrolytes; sodium 135, potassium 4.4, BUN and creatinine elevated at 44 and 2.9 respectively. Liver profile shows an elevated AST, ALT, alkaline phosphatase of 72, 124, and 145 respectively. Total bilirubin of 0.9. Lipase is 19. ASSESSMENT: 1. Abdominal pain, left upper quadrant. 2. Bloody diarrhea, multiple bouts yesterday and today. 3. Multiple medical problems including atrial fibrillation and the patient is currently on Pradaxa. PLAN: 1. I am recommending to keep the patient n.p.o. 2. Aggressive IV hydration. I will give her 1 L of normal saline for a normal saline at 125 mL per hour due to elevated BUN and creatinine. 3. I will hold off the Pradaxa as you are doing. 4. Continue the current antibiotic regimen. 5. We will follow the patient daily and intervene as needed. However, at this point no surgical intervention is contemplated. 6. Agree with stool cultures and C. Difficilis toxin. DICTATING PHYSICIAN: YOUNG COOPER M.D. [id number] PHY#: [id number] ID: [id number] JOB#: [id number] ACCT: [id number] cc:YOUNG COOPER M.D. > [facility]
[2017-05-25] MEDS: METRONIDAZOLE 500 MG/NS RTU 100 ML IV SCH ×5 (00:49→23:53)
[2017-05-25] MEDS ORDERED: NORMAL SALINE 1000 ML 1,000 ML IV ONE ×2 (01:15→02:45)
[2017-05-25 03:20] LABS: ANION GAP 12 (5-19); BLOOD UREA NITROGEN 49 mg/dL (7-20); CALCIUM 7.1 mg/dL (8.4-10.2); CARBON DIOXIDE 19 mmol/L (22-30); CHLORIDE 103 mmol/L (98-107); CREATININE RESULT 2.46 mg/dL (0.52-1.25); GLUCOSE 113 mg/dL (75-110); MAGNESIUM 1.5 mg/dL (1.6-2.3); SODIUM 133.6 mmol/L (137-145)
[2017-05-25 03:24] LABS: POTASSIUM 3.3 mmol/L (3.6-5.0)
[2017-05-25] MEDS ORDERED: NORMAL SALINE 1000 ML 1,000 ML IV PRN (03:59)
[2017-05-25] MEDS ORDERED: NORMAL SALINE 1000 ML 500 ML IV ONE (04:15)
[2017-05-25] MEDS: MAGNESIUM SULFATE/D5W 1 GM/100 ML RTUPB IV SCH ×2 (05:14→06:59)
[2017-05-25] MEDS: POTASSI CL 20 MEQ/50 ML RIDER 20 MEQ/50 ML RTUPB IV SCH ×2 (05:14→07:51)
[2017-05-25 06:33] LABS: APPEARANCE,URINE CLOUDY; BILIRUBIN,URINE NEGATIVE (NEGATIVE); GLUCOSE, URINE NEGATIVE (NEGATIVE); KETONES,URINE TRACE mg/dL (NEGATIVE); LEUKOCYTE ESTERASE,URINE TRACE (NEGATIVE); NITRITE,URINE NEGATIVE (NEGATIVE); PROTEIN,URINE NEGATIVE (NEGATIVE); URINE SPECIFIC GRAVITY 1.012; UROBILINOGEN,URINE NEGATIVE mg/dL (<2.0)
--- NOTE | 2017-05-25 08:12 | PDOC PROGRESS REPORT ---
Subjective Progress Note for:: 05/25/17 Subjective:: The patient is an 86-year-old female who presented to the emergency department yesterday complaining of blood in her underwear. Yesterday, she denied abdominal pain and she was fairly certain that the blood was coming from her urine. In the emergency department the patient had a CT scan of the abdomen and pelvis that demonstrated diffuse colitis in the transverse and descending colon. She was admitted with a tentative diagnosis of infectious colitis, rule out ischemic colitis. Yesterday, the patient had 2 episodes of bright red blood per rectum with diarrhea. She has a history of underlying atrial fibrillation. Based on her age and history of atrial fibrillation and clinical picture her diagnosis is most consistent with ischemic colitis. Overnight, the patient was transferred to the intensive care unit for atrial fibrillation/ flutter with rapid ventricular response. She was also hypotensive overnight and received 3 L of intravenous saline. This morning, the patient is complaining of increased shortness of breath and fatigue. She is complaining of back pain. She is complaining of increased abdominal pain. She is not complaining of any chest pain, pressure or palpitations. Physical Exam Vital Signs: Temp Pulse Resp BP Pulse Ox 97.8 F 121 H 17 125/59 L 97 05/25/17 07:41 05/25/17 07:41 05/25/17 07:41 05/25/17 07:41 05/25/17 07:41 Intake & Output 05/24/17 05/25/17 05/26/17 06:59 06:59 06:59 Intake Total 50 Output Total 150 225 Balance -100 -225 Weight 75 kg General appearance: PRESENT: no acute distress, cooperative Head exam: PRESENT: atraumatic Eye exam: PRESENT: EOMI Mouth exam: PRESENT: moist, neck supple Respiratory exam: PRESENT: decreased breath sounds Cardiovascular exam: PRESENT: irregular rhythm GI/Abdominal exam: PRESENT: hypoactive bowel sounds, soft, tenderness Rectal exam: PRESENT: deferred Neurological exam: PRESENT: alert, awake Psychiatric exam: PRESENT: appropriate affect Skin exam: PRESENT: normal color Additional comments: The patient has multiple abrasions and lesions on her face. Apparently, she has recently seen a automatic mold sander that removed many lesions due to the concern of skin cancer. She is not yet aware of the pathology results. Results Laboratory Results: 05/25/17 02:38 0705/25/17 05/25/17 20:34 02:38 02:38 Sodium 133.6 L Potassium 3.3 L D Chloride 103 Carbon Dioxide 19 L Anion Gap 12 BUN 49 H Creatinine 2.46 H Est GFR ( Amer) 23 L Est GFR (Non-Af Amer) 19 L Glucose 113 H Calcium 7.1 L Magnesium 1.5 L TSH 0.87 Urine Color Urine Appearance Urine pH Ur Specific [place] Urine Protein Urine Glucose (UA) Urine Ketones Urine Blood Urine Nitrite Ur Leukocyte Esterase Urine WBC (Auto) Urine RBC (Auto) Stool for White Cells NO WBCs SEEN 05/25/17 05:47 Sodium Potassium Chloride Carbon Dioxide Anion Gap BUN Creatinine Est GFR ( Amer) Est GFR (Non-Af Amer) Glucose Calcium Magnesium TSH Urine Color YELLOW Urine Appearance CLOUDY Urine pH 5.0 Ur Specific [place] 1.012 Urine Protein NEGATIVE Urine Glucose (UA) NEGATIVE Urine Ketones TRACE H Urine Blood NEGATIVE Urine Nitrite NEGATIVE Ur Leukocyte Esterase TRACE H Urine WBC (Auto) 9 Urine RBC (Auto) 7 Stool for White Cells Impressions: Abdomen/Pelvis CT 05/24/17 12:25 IMPRESSION: 1. Extensive colitis, predominantly in the transverse colon and proximal descending colon. Differential includes infectious/ inflammatory and vascular etiologies. No significant diverticulosis through this area. 2. Cholelithiasis with distended gallbladder. 3. Atherosclerosis. 4. Known L1 recent compression fracture. Assessment & Plan - Diagnosis (1) Leucocytosis Is this a current diagnosis for this admission?: YesPlan: Continue antibiotics. Repeat CBC is pending. (2) Hematuria Is this a current diagnosis for this admission?: YesPlan: Urine culture is pending, but, I think this diagnosis is erroneous as the patient clearly has some bright red blood per rectum. (3) Colitis presumed to be due to infection Is this a current diagnosis for this admission?: YesPlan: Bleed, this is ischemic colitis. Mesenteric Doppler has been ordered but has not yet been completed. General surgery is following. I did discuss the severity of this illness with the patient. I discussed the possibility of surgery should there be any necrosis of bowel. (4) Vertebral fracture, closed Qualifiers: Encounter type: initial encounter Fracture of vertebra location: lumbar Lumbar vertebra fracture level: L1 Fracture morphology: wedge compression Qualified Code(s): S32.010A - Wedge compression fracture of first lumbar vertebra, initial encounter for closed fracture Is this a current diagnosis for this admission?: YesPlan: Continue pain control. (5) Acute kidney failure, unspecified Is this a current diagnosis for this admission?: YesPlan: Patient has received intravenous fluids. Her hypotension has been corrected. Unfortunately, she did receive IV contrast. We will need to try to avoid nephrotoxins. (6) Hypomagnesemia Is this a current diagnosis for this admission?: Yes (7) Hypokalemia Is this a current diagnosis for this admission?: Yes (8) Shock Is this a current diagnosis for this admission?: Yes (9) Atrial fibrillation with RVR Plan: Is now normotensive. I will restart rate controlling agents. I will try to get outpatient records for cardiac function. - Time Critical Time spent with patient: 25-34 minutes Medications reviewed and adjusted accordingly: Yes - Inpatient Certification Medical Necessity: Need For IV Fluids, Need for IV Antibiotics, Risk of Complication if Not Cared For in Hospital
[2017-05-25] MEDS ORDERED: MORPHINE SULFATE 10 MG/ML INJ IV PRN (08:29)
[2017-05-25] MEDS ORDERED: DILTIAZEM HCL 240 MG CAPSULE.CR PO SCH (10:00)
[2017-05-25] MEDS: CIPROFLOXACIN 400 MG/D5W RTU 400 MG/200 ML RTUPB IV SCH ×2 (10:43→21:59)
[2017-05-25 11:38] LABS: HEMATOCRIT 30.5 % (36.0-47.0); HGB HCT DIFFERENCE -0.2; MEAN CORPUSCULAR HEMOGLOBIN 29.9 pg (27.0-33.4); MEAN CORPUSCULAR VOLUME 91 fl (80-97); RED BLOOD COUNT 3.37 10^6/uL (3.72-5.28); RED CELL DISTRIBUTION WIDTH 12.6 % (11.5-14.0)
[2017-05-25] MEDS: DILTIAZEM HCL/D5W 125 ML IV PRN (11:40)
[2017-05-25 11:59] LABS: BAND NEUTROPHILS % (MANUAL) 20 % (3-5); BASOPHILS % (MANUAL) 0 % (0-2); EOSINOPHILS % (MANUAL) 0 % (0-6); LYMPHOCYTES % (MANUAL) 2 % (13-45); TOTAL CELLS COUNTED 100
[2017-05-25 12:03] LABS: BURR CELLS 1+; OVALOCYTES SLIGHT; POIKILOCYTOSIS SLIGHT; POLYCHROMASIA SLIGHT; TARGET CELLS SLIGHT; TEAR DROP CELLS SLIGHT; TOXIC GRANULATION SLIGHT
[2017-05-25 12:06] LABS: TOXIC VACUOLATION PRESENT
[2017-05-25 12:15] LABS: ANION GAP 14 (5-19); BLOOD UREA NITROGEN 36 mg/dL (7-20); CARBON DIOXIDE 13 mmol/L (22-30); CHLORIDE 108 mmol/L (98-107); CREATININE RESULT 1.78 mg/dL (0.52-1.25); GLUCOSE 127 mg/dL (75-110); PHOSPHORUS 2.6 mg/dL (2.5-4.5); SODIUM 134.8 mmol/L (137-145)
--- NOTE | 2017-05-25 12:20 | RADIOLOGY REPORT (SQ) ---
EXAM DESCRIPTION: U/S ABDOMEN LTD W/DOPPLER COMPLETED DATE/TIME: 05/25/2017 11:37 am REASON FOR STUDY: Mesenteric doppler ? ischemic colitis COMPARISON: None. TECHNIQUE: Grayscale, Doppler, color Doppler and spectral ultrasound performed of the celiac axis an d superior mesenteric artery. LIMITATIONS: Study is limited somewhat due to overlying bowel gas. FINDINGS: CELIAC AXIS VELOCITIES: PEAK SYSTOLIC: 59.6 cm/sec SUPERIOR MESENTERIC ARTERY VELOCITIES: PEAK SYSTOLIC: 132 cm/sec IMPRESSION: NORMAL MESENTERIC DOPPLER. NO DOPPLER EVIDENCE OF SIGNIFICANT STENOSIS. A large gallst one was identified within the gallbladder lumen. TECHNICAL DOCUMENTATION: JOB ID: [id number]- All Rights Reserved
[2017-05-25] MEDS ORDERED: DILTIAZEM HCL INJ 25 MG/5 ML VIAL IV ONE (12:30)
[2017-05-25 12:38] LABS: CALCIUM 6.7 mg/dL (8.4-10.2); POTASSIUM 4.7 mmol/L (3.6-5.0)
--- NOTE | 2017-05-25 12:59 | EKG REPORT ---
SEVERITY:- ABNORMAL ECG - ATRIAL FIBRILLATION REPOLARIZATION ABNORMALITY, PROB RATE RELATED : Confirmed by: Dmitry Washington MD 25-May-2017 12:58:13
--- NOTE | 2017-05-25 13:16 | PDOC PROGRESS REPORT ---
Subjective Progress Note for:: 05/25/17 Subjective:: Patient appears weak and pale, she reports mild abdominal pain only on palpation ; 2 bloody bowel movements today Physical Exam Vital Signs: Temp Pulse Resp BP Pulse Ox 97.8 F 123 H 21 H 118/48 L 98 05/25/17 12:00 05/25/17 12:00 05/25/17 12:00 05/25/17 12:00 05/25/17 12:00 Intake & Output 05/24/17 05/25/17 05/26/17 06:59 06:59 06:59 Intake Total 50 Output Total 150 660 Balance -100 -660 Weight 75 kg General appearance: PRESENT: cooperative, mild distress Respiratory exam: PRESENT: clear to auscultation kim Cardiovascular exam: PRESENT: irregular rhythm, tachycardia GI/Abdominal exam: PRESENT: distended, hypoactive bowel sounds, tenderness - mild, left upper quadrant Results Laboratory Results: 05/25/17 11:28 05/25/17 11:28 05/24/17 05/25/17 05/25/17 20:34 02:38 02:38 WBC RBC Hgb Hct MCV MCH MCHC RDW Plt Count Seg Neutrophils % Lymphocytes % Monocytes % Eosinophils % Basophils % Absolute Neutrophils Absolute Lymphocytes Absolute Monocytes Absolute Eosinophils Absolute Basophils Sodium 133.6 L Potassium 3.3 L D Chloride 103 Carbon Dioxide 19 L Anion Gap 12 BUN 49 H Creatinine 2.46 H Est GFR ( Amer) 23 L Est GFR (Non-Af Amer) 19 L Glucose 113 H Calcium 7.1 L Phosphorus Magnesium 1.5 L TSH 0.87 Urine Color Urine Appearance Urine pH Ur Specific [place] Urine Protein Urine Glucose (UA) Urine Ketones Urine Blood Urine Nitrite Ur Leukocyte Esterase Urine WBC (Auto) Urine RBC (Auto) Stool for White Cells NO WBCs SEEN 05/25/17 05/25/17 05/25/17 02:38 05:47 11:28 WBC 15.2 H RBC 3.39 L Hgb 10.2 L D Hct 31.2 L MCV 92 MCH 30.0 MCHC 32.6 RDW 13.1 Plt Count 103 L Seg Neutrophils % Not Reportable Lymphocytes % Not Reportable Monocytes % Not Reportable Eosinophils % Not Reportable Basophils % Not Reportable Absolute Neutrophils Not Reportable Absolute Lymphocytes Not Reportable Absolute Monocytes Not Reportable Absolute Eosinophils Not Reportable Absolute Basophils Not Reportable Sodium 134.8 L Potassium 4.7 D Chloride 108 H Carbon Dioxide 13 L Anion Gap 14 BUN 36 H Creatinine 1.78 H Est GFR ( Amer) 33 L Est GFR (Non-Af Amer) 27 L Glucose 127 H Calcium 6.7 L* Phosphorus 2.6 Magnesium TSH Urine Color YELLOW Urine Appearance CLOUDY Urine pH 5.0 Ur Specific [place] 1.012 Urine Protein NEGATIVE Urine Glucose (UA) NEGATIVE Urine Ketones TRACE H Urine Blood NEGATIVE Urine Nitrite NEGATIVE Ur Leukocyte Esterase TRACE H Urine WBC (Auto) 9 Urine RBC (Auto) 7 Stool for White Cells 05/25/17 11:28 WBC 14.0 H RBC 3.37 L Hgb 10.1 L Hct 30.5 L MCV 91 MCH 29.9 MCHC 33.0 RDW 12.6 Plt Count 106 L Seg Neutrophils % Not Reportable Lymphocytes % Not Reportable Monocytes % Not Reportable Eosinophils % Not Reportable Basophils % Not Reportable Absolute Neutrophils Not Reportable Absolute Lymphocytes Not Reportable Absolute Monocytes Not Reportable Absolute Eosinophils Not Reportable Absolute Basophils Not Reportable Sodium Potassium Chloride Carbon Dioxide Anion Gap BUN Creatinine Est GFR ( Amer) Est GFR (Non-Af Amer) Glucose Calcium Phosphorus Magnesium TSH Urine Color Urine Appearance Urine pH Ur Specific [place] Urine Protein Urine Glucose (UA) Urine Ketones Urine Blood Urine Nitrite Ur Leukocyte Esterase Urine WBC (Auto) Urine RBC (Auto) Stool for White Cells 05/25/17 08:54 Troponin I 0.025 Impressions: Abdomen/Pelvis CT 05/24/17 12:25 IMPRESSION: 1. Extensive colitis, predominantly in the transverse colon and proximal descending colon. Differential includes infectious/ inflammatory and vascular etiologies. No significant diverticulosis through this area. 2. Cholelithiasis with distended gallbladder. 3. Atherosclerosis. 4. Known L1 recent compression fracture. Abdomen Ultrasound 05/25/17 00:00 IMPRESSION: NORMAL MESENTERIC DOPPLER. NO DOPPLER EVIDENCE OF SIGNIFICANT STENOSIS. A large gallstone was identified within the gallbladder lumen. Assessment & Plan - Diagnosis (2) Acute kidney failure, unspecified Is this a current diagnosis for this admission?: Yes (3) Atrial fibrillation with RVR Is this a current diagnosis for this admission?: Yes (4) Colitis presumed to be due to infection Is this a current diagnosis for this admission?: Yes (5) Leucocytosis Qualifiers: Leukocytosis type: bandemia Qualified Code(s): D72.825 - Bandemia Is this a current diagnosis for this admission?: Yes - Plan Summary Plan Summary: Continue IV antibiotics for both UTI (urine culture pending) and possible infectious colitis Doubt true primary ischemic colitis as her GI doppler arterial flow is normal and she is fully anticoagulated; however, she might have suffered from a low flow status (secondary to UTI?) promoting ischemia of the colonic mucosa and secondary bleeding due to her Pradaxa use. Continue NPO until diarrhea and abdominal symptoms subside Stool cx pending (negative C. Difficilis toxin) Replace electrolytes as currently being done Lactic acid pending Patient still fully anticoagulated as she took her last Pradaxa dose last night (CVL can be inserted tomorrow) Continue aggressive IV hydration; her kidney function has improved since yesterday No surgical intervention contemplated at this time as it does not appear that the patient is suffering of a gastrointestinal condition warranting surgery. We will follow her closely.
[2017-05-25] MEDS ORDERED: METOPROLOL TARTRATE 25 MG TABLET PO SCH (14:00)
[2017-05-25 15:11] LABS: HEMOGLOBIN 10.1 g/dL (12.0-15.5)
--- NOTE | 2017-05-25 16:57 | XCELERA REPORT ---
[address] [address] Transthoracic Echocardiogram Report Name: SHOAIB NICOLAS Age: 86 yrs Gender: Female : 1930 Patient Status: Inpatient Patient Location: ICU\S\605\S\A Study Date: 05/25/2017 02:28 PM Height: 61 in Weight: 165 lb BSA: 1.7 m2 Reason For Study: afib with rvr Ordering Physician: ZAHRA FINK Performed By: [place] Interpretation Summary Normal LVEF 65-70% with mild hypokin IVS, no LV diastolic dysfunction, no LV enlargement. No Mitral annular calcification, no MVP, no MS and mild MR with no LA enlargement, and no LA clot. Normal AV. Mild TR with mod pulm hypertension RVSP 44, no RH enlargement. MMode/2D Measurements \T\ Calculations RVDd: 2.5 cm LVIDd: 4.7 cm FS: 30.5 % Ao root diam: 2.5 cm IVSd: 0.86 cm LVIDs: 3.2 cm EDV(Teich): 100.3 ml LVPWd: 0.90 cmESV(Teich): 42.2 ml Ao root area: 5.1 cm2 EF(Teich): 58.0 % LVOT diam: 1.9 cm LVOT area: 3.0 cm2 Doppler Measurements \T\ Calculations MV E max serene: MV dec slope: Ao V2 max: LV V1 max P.2 cm/sec 389.6 cm/sec2 135.7 cm/sec 4.0 mmHg MV A max serene: MV dec time: Ao max PG: LV V1 max: 0.44 cm/sec 0.24 sec 7.4 mmHg 100.1 cm/sec MV E/A: 210.0 LEOLA(V,D): 2.2 cm2 PA V2 max: TR max serene: 110.1 cm/sec 302.9 cm/sec PA max PG: TR max P.2 mmHg 4.9 mmHg Left Ventricle The left ventricle is normal in size. There is normal left ventricular wall thickness. LV EF is 65-70%. Doppler measurements suggest normal left ventricular diastolic function. There is anteroseptal wall mild hypokinesis. There is no thrombus. Right Ventricle The right ventricle is grossly normal size. The right ventricular systolic function is normal. Atria The right atrium is normal. The left atrial size is normal. The atrial septum is aneurysmal. Mitral Valve The mitral valve is normal in structure and function. There is mild mitral annular calcification. There is no evidence of mitral valve prolapse. There is no mitral valve stenosis. There is a mild amount of mitral regurgitation. Aortic Valve The aortic valve is trileaflet. The aortic valve opens well. The aortic valve is calcified. There is no aortic valvular vegetation. There is no aortic valve stenosis. No aortic regurgitation is present. Tricuspid Valve The tricuspid is normal in structure and function. There is no tricuspid valve prolapse. There is no tricuspid stenosis. There is a mild to moderate amount of tricuspid regurgitation. Right ventricular systolic pressure is estimated to be elevated at 40-50mmHg. Pulmonic Valve The pulmonic valve is not well visualized. There is no pulmonic valvular regurgitation. Great Vessels The aortic root is normal size. Effusions Minimal pericardial effusion. I WMSI = 1.25 % Normal = 75 Segments Size X - Cannot 2 - 4 - 1-2 small Interpret 1 - Normal Hypokinetic 3 - AkineticDyskinetic 3-5 moderate 5 - 6-14 large Aneurysmal 15-16 diffuse : ZAHRA FINK > Dmitry Washington
--- NOTE | 2017-05-25 20:29 | CONSULTATION REPORT E ---
Consultation Report NAME: SHOAIB NICOLAS : 1930 AGE: 86Y DATE: 05/25/2017 605 A TO: VARUN INFANTE M.D. FROM: ZAHRA FINK M.D. Requesting Physician The first part of the dictation History of Present Illness was done on . PAST SURGICAL HISTORY: Includes: 1. Colonoscopy. 2. Polypectomy. 3. Cataract extraction. FAMILY HISTORY: Positive for OR, diabetes, and stroke. SOCIAL HISTORY: Patient is a nonsmoker, does not drink, no illicit drug. MEDICATIONS: Prior to admission consisted of: 1. Metoprolol 75 mg b.i.d. 2. Chlorthalidone 12.5 mg daily. 3. Omeprazole 20 mg daily with famotidine 20 mg at bedtime. 4. Diltiazem 240 ER once daily. 5. Pradaxa 75 mg b.i.d. 6. Crestor 10 mg daily. 7. Lisinopril 10 mg once a day. 8. Fosamax 70 mg once a week. ALLERGIES: DIPYRIDAMOLE. PHYSICAL EXAMINATION: GENERAL: Finds this patient to be in no acute distress. VITAL SIGNS: Her blood pressure is 110/70, heart rate was 101 per minute on IV Cardizem drip at 7.5 mg per hour, O2 saturation was 96%. HEENT: Shows a normocephalic skull. Pupils show evidence of cataract extraction. Ears, nose, and throat normal. NECK: JVP was not distended. HEART: Showed PMI not palpable. S4 absent, rhythm was irregular, S1 variable, S2 normal. No S3. Grade 2/6 systolic ejection murmur was heard in the left upper sternal border. No MR murmur was heard. No AR murmur heard. systolic ejection murmur in the left lower sternal border was heard due to tricuspid regurgitation. CHEST: Showed bilateral basilar crepitations, right greater than left. ABDOMEN: Showed mild distension. Normal bowel sounds. No hepatosplenomegaly. EXTREMITIES: Showed no edema. NEUROLOGICAL: Entirely intact. LABORATORY TESTING: Showed her CBC on admission was 13.4, went down to 10.2 with IV fluids. The white cell count was 24.8, went down to 14, patient is on antibiotics at this time. Platelets was 169,000, went down to 106,000, there is a known history of thrombocytopenia. Her renal function showed BUN 49, creatinine 2.46 on admission. This dropped down to 36 and 1.78 respectively after IV fluids. Her sodium was 134 and stable and the potassium dropped down to 3.3 after the IV fluid infusion. Subsequently given potassium riders and last potassium was 4.7. Her calcium was 7.1 and magnesium was 1.5. Her liver profile showed SGOT 72, SGPT was 124, alkaline phosphatase 145, total bilirubin 0.9, and albumin was 4.0 which dropped down to 2.4. Her serum lipase was elevated at 18.8. The troponin I was 0.025. The BNP was 5500. C. diff was negative. The urinalysis showed trace blood, her stool was positive for blood bright red. On 05/24/2017, an abdominal pelvis CT scan showed extensive colitis involving transverse and proximal descending colon, there was cholelithiasis with distended gallbladder and recent compression fracture at L1. ASSESSMENT AND PLAN: 1. Persistent atrial fibrillation with rapid ventricular response due to omission of oral outpatient beta irma and calcium channel irma on admission due to her GI bleeding status. Patient is currently being treated with IV Cardizem and reinitiation of Lopressor at 25 mg q. 8 hours, I have since increased the dose to 50 mg b.i.d. It is noted that her normal Lopressor dose is 75 mg b.i.d. When patient is more stable and decision on whether to operate is clarified, then patient should be put back on her oral Lopressor and oral Cardizem before discharge from the hospital. Any hypotensive episode should be treated with IV fluids and/or packed cell transfusion depending on her hemoglobin. There appears to be no LV failure at this time. Patient's echocardiogram shows her LVEF to be 65 to 70%, with mild hypokinesis of the interventricular septum, no left ventricular diastolic dysfunction and only mild MR with no left atrial enlargement, moderate pulmonary hypertension, RVSP 44, due to chronic lung disease, there being no right heart enlargement. 2. severe GI bleeding ? ischemic colitis, pending resolution ? surgery, Pradaxa on hold. Will follow this patient with you until she is more stable. Thank you. DICTATING PHYSICIAN: VARUN INFANTE M.D. [id number] PHY#: [id number] ID: [id number] JOB#: [id number] ACCT: [id number] cc:VARUN INFANTE M.D. > AMANDEEP
[2017-05-25 21:06] LABS: ALBUMIN 2.5 g/dL (3.5-5.0); ANION GAP 11 (5-19); BLOOD UREA NITROGEN 29 mg/dL (7-20); CARBON DIOXIDE 17 mmol/L (22-30); CHLORIDE 107 mmol/L (98-107); CREATININE RESULT 1.54 mg/dL (0.52-1.25); GLUCOSE 112 mg/dL (75-110); MAGNESIUM 2.2 mg/dL (1.6-2.3); POTASSIUM 4.2 mmol/L (3.6-5.0); SODIUM 134.6 mmol/L (137-145)
[2017-05-25 21:42] LABS: CALCIUM 6.8 mg/dL (8.4-10.2)
[2017-05-25] MEDS ORDERED: METOPROLOL TARTRATE 50 MG TABLET PO SCH (22:00)
[2017-05-25] MEDS ORDERED: CALCIUM GLUCONATE 1000 MG/10 ML INJ IV ONE (22:15)
[2017-05-26 04:09] LABS: HEMATOCRIT 30.8 % (36.0-47.0); HGB HCT DIFFERENCE -0.8; MEAN CORPUSCULAR HEMOGLOBIN 29.8 pg (27.0-33.4); MEAN CORPUSCULAR HGB CONC 32.4 g/dL (32.0-36.0); MEAN CORPUSCULAR VOLUME 92 fl (80-97); RED BLOOD COUNT 3.34 10^6/uL (3.72-5.28); RED CELL DISTRIBUTION WIDTH 13.3 % (11.5-14.0); WHITE BLOOD COUNT 15.1 10^3/uL (4.0-10.5)
[2017-05-26 04:45] LABS: BAND NEUTROPHILS % (MANUAL) 9 % (3-5); BASOPHILS % (MANUAL) 0 % (0-2); BURR CELLS SLIGHT; EOSINOPHILS % (MANUAL) 0 % (0-6); LYMPHOCYTES % (MANUAL) 4 % (13-45); OVALOCYTES SLIGHT; POIKILOCYTOSIS SLIGHT; TOTAL CELLS COUNTED 100; TOXIC GRANULATION SLIGHT
[2017-05-26 05:18] LABS: ALANINE AMINOTRANSFERASE 59 U/L (9-52); ALBUMIN 2.5 g/dL (3.5-5.0); ALKALINE PHOSPHATASE 89 U/L (38-126); ANION GAP 11 (5-19); ASPARTATE AMINO TRANSFERASE 24 U/L (14-36); BILIRUBIN,DIRECT 0.3 mg/dL (0.0-0.4); BILIRUBIN,TOTAL 0.4 mg/dL (0.2-1.3); BLOOD UREA NITROGEN 25 mg/dL (7-20); CALCIUM 7.4 mg/dL (8.4-10.2); CARBON DIOXIDE 18 mmol/L (22-30); CHLORIDE 106 mmol/L (98-107); CREATININE RESULT 1.34 mg/dL (0.52-1.25); GLUCOSE 97 mg/dL (75-110); MAGNESIUM 2.2 mg/dL (1.6-2.3); PHOSPHORUS 2.9 mg/dL (2.5-4.5); POTASSIUM 4.1 mmol/L (3.6-5.0); SODIUM 134.9 mmol/L (137-145); TOTAL PROTEIN 4.9 g/dL (6.3-8.2)
[2017-05-26] MEDS: METRONIDAZOLE 500 MG/NS RTU 100 ML IV SCH ×3 (05:26→17:00)
--- NOTE | 2017-05-26 08:04 | PDOC PROGRESS REPORT ---
Subjective Progress Note for:: 05/26/17 Subjective:: Patient is an 86-year-old female with underlying atrial fibrillation. She fell 1 week prior to admission and sustained a compression fracture at L1. She went to see her primary care provider in [place], Shamika galaviz at [place] [facility]. She was placed on oral opioids. She developed nausea and vomiting while taking the opioids. After she developed nausea and vomiting she had difficulty taking p.o. intake. She presented to the emergency department on May 24 with complaints of persistent back pain and blood in her underwear. Initially, she suspected that the bleeding was coming from her urethra. In the emergency department a CT was done of the abdomen and pelvis. Note that this was done without IV or oral contrast. The CT of the abdomen and pelvis demonstrated diffuse colitis of the transverse and descending colon. Therefore, the patient was admitted with a tentative diagnosis of infectious colitis. During the first 24 hours of admission the patient was transferred to the intensive care unit secondary to severe hypotension as well as atrial fibrillation with rapid ventricular response. She was treated with intravenous fluids with good response. She did not require vasopressors. Her atrial fibrillation has been treated with oral Lopressor and intravenous diltiazem. She appears to be improving. During this hospitalization she has also had acute on chronic kidney disease, this improved with IV fluids. General surgery is following the patient. Cardiology is following the patient. At this point in time the patient's mesenteric Doppler is unremarkable and we feel that her diagnosis is more compatible with infectious colitis than ischemic colitis. The patient Also has evidence of a urinary tract infection. Systems this morning: The patient states that she feels significantly improved when compared to admission. Her back pain and abdominal pain are improved. She denies shortness of breath. She denies chest pain. She denies any subjective fevers or chills overnight. She has not had any bowel movements since yesterday and she has not had any bright red blood per rectum. She has a Velazquez catheter in place but denies pain or burning with urination. Physical Exam Vital Signs: Temp Pulse Resp BP Pulse Ox 97.9 F 102 H 25 H 114/67 95 05/26/17 06:24 05/26/17 07:24 05/26/17 06:39 05/26/17 06:39 05/26/17 06:39 Intake & Output 05/25/17 05/26/1705/27/17 06:59 06:59 06:59 Intake Total 50 2600 Output Total 150 2075 Balance -100 525 Weight 75 kg 75.1 kg Additional comments: Appears to be fairly healthy for 86 years old. She is alert and in no distress. She is very cooperative. Her neurological exam is unremarkable and her cognition is good. Her facial appearance demonstrates multiple lesions. She has recently had many lesions removed for the possibility of skin cancer. Her oropharynx demonstrates moist mucosa. She has no significant lesions in her mouth. Her neck is supple. She does not have any JVD present. She has rare crackles in the posterior lung rubin only. Her cardiac exam demonstrates an irregularly irregular rhythm. I do not appreciate any murmurs, gallops or rubs. The abdomen is diffusely distended, but soft. Positive bowel sounds are noted and are normoactive. The patient has voluntary guarding but no rebound. No masses or hernias are appreciated. The patient's lower extremities are warm to touch. The skin lesions are as noted above. She does not have any pitting edema in the lower extremities. Results Laboratory Results: 05/26/17 03:58 05/26/17 03:58 05/25/17 05/25/17 05/25/17 02:38 11:28 11:28 WBC 14.0 H RBC 3.37 L Hgb 10.1 L D Hct 30.5 L MCV 91 MCH 29.9 MCHC 33.0 RDW 12.6 Plt Count 106 L Seg Neutrophils % Not Reportable Not Reportable Lymphocytes % Not Reportable Not Reportable Monocytes % Not Reportable Not Reportable Eosinophils % Not Reportable Not Reportable Basophils % Not Reportable Not Reportable Absolute Neutrophils Not Reportable Not Reportable Absolute Lymphocytes Not Reportable Not Reportable Absolute Monocytes Not Reportable Not Reportable Absolute Eosinophils Not Reportable Not Reportable Absolute Basophils Not Reportable Not Reportable Sodium 134.8 L Potassium 4.7 D Chloride 108 H Carbon Dioxide 13 L Anion Gap 14 BUN 36 H Creatinine 1.78 H Est GFR ( Amer) 33 L Est GFR (Non-Af Amer) 27 L Glucose 127 H Lactic Acid Calcium 6.7 L* Ionized Calcium Darlene Phosphorus 2.6 Magnesium Total Bilirubin AST ALT Alkaline Phosphatase Total Protein Albumin 05/25/17 05/25/17 05/25/17 11:28 14:22 20:32 WBC RBC Hgb Hct MCV MCH MCHC RDW Plt Count Seg Neutrophils % Lymphocytes % Monocytes % Eosinophils % Basophils % Absolute Neutrophils Absolute Lymphocytes Absolute Monocytes Absolute Eosinophils Absolute Basophils Sodium 134.6 L Potassium 4.2 Chloride 107 Carbon Dioxide 17 L Anion Gap 11 BUN 29 H Creatinine 1.54 H Est GFR ( Amer) 39 L Est GFR (Non-Af Amer) 32 L Glucose 112 H Lactic Acid 1.5 Calcium 6.8 L* Ionized Calcium Darlene Phosphorus Magnesium 2.2 Total Bilirubin AST ALT Alkaline Phosphatase Total Protein Albumin 2.6 L 2.5 L 05/25/17 05/26/17 05/26/17 20:32 03:58 03:58 WBC 15.1 H RBC 3.34 L Hgb 10.0 L Hct 30.8 L MCV 92 MCH 29.8 MCHC 32.4 RDW 13.3 Plt Count 122 L Seg Neutrophils % Not Reportable Lymphocytes % Not Reportable Monocytes % Not Reportable Eosinophils % Not Reportable Basophils % Not Reportable Absolute Neutrophils Not Reportable Absolute Lymphocytes Not Reportable Absolute Monocytes Not Reportable Absolute Eosinophils Not Reportable Absolute Basophils Not Reportable Sodium 134.9 L Potassium 4.1 Chloride 106 Carbon Dioxide 18 L Anion Gap 11 BUN 25 H Creatinine 1.34 H Est GFR ( Amer) 45 L Est GFR (Non-Af Amer) 38 L Glucose 97 Lactic Acid Calcium 7.4 L Ionized Calcium Darlene 1.01 L Phosphorus 2.9 Magnesium 2.2 Total Bilirubin 0.4 AST 24 ALT 59 H Alkaline Phosphatase 89 Total Protein 4.9 L Albumin 2.5 L 05/25/17 05/25/17 05/25/17 08:54 11:28 14:22 Troponin I 0.025 0.038 NT-Pro-B Natriuret Pep 5500 H 05/25/17 20:32 Troponin I 0.038 NT-Pro-B Natriuret Pep Impressions: Abdomen/Pelvis CT 05/24/17 12:25 IMPRESSION: 1. Extensive colitis, predominantly in the transverse colon and proximal descending colon. Differential includes infectious/ inflammatory and vascular etiologies. No significant diverticulosis through this area. 2. Cholelithiasis with distended gallbladder. 3. Atherosclerosis. 4. Known L1 recent compression fracture. Abdomen Ultrasound 05/25/17 00:00 IMPRESSION: NORMAL MESENTERIC DOPPLER. NO DOPPLER EVIDENCE OF SIGNIFICANT STENOSIS. A large gallstone was identified within the gallbladder lumen. Assessment & Plan - Diagnosis (1) Leucocytosis Qualifiers: Leukocytosis type: bandemia Qualified Code(s): D72.825 - Bandemia Is this a current diagnosis for this admission?: YesPlan: Patient's leukocytosis and bandemia are improving. This suggests a good response to her current therapy. (2) Hematuria Is this a current diagnosis for this admission?: YesPlan: Urine culture is pending, but, I think this diagnosis is erroneous as the patient clearly has some bright red blood per rectum. Further evaluation is needed at this time. After completion of treatment for urinary tract infection I would recommend a repeat urinalysis with microscopic exam. (3) Colitis presumed to be due to infection Is this a current diagnosis for this admission?: YesPlan: Appears that the patient's presentation is most consistent with infectious colitis and less likely to be due to ischemic colitis. Therefore, we will continue ciprofloxacin and metronidazole. The patient does not appear to have a surgical abdomen at this time. General surgery is following. (4) Vertebral fracture, closed Qualifiers: Encounter type: initial encounter Fracture of vertebra location: lumbar Lumbar vertebra fracture level: L1 Fracture morphology: wedge compression Qualified Code(s): S32.010A - Wedge compression fracture of first lumbar vertebra, initial encounter for closed fracture Is this a current diagnosis for this admission?: YesPlan: Continue pain control. (5) Acute kidney failure, unspecified Is this a current diagnosis for this admission?: YesPlan: Patient has received intravenous fluids. Her hypotension has been corrected. Continue to avoid nephrotoxins. The patient's baseline creatinine is 1.55. She has chronic kidney disease stage III. Her creatinine at this time is at her baseline. The patient will remain n.p.o. Her ins and outs today suggest that she is only 500 mL positive. She is likely third spacing her fluids. I will add gentle IV fluids until she can start drinking. (6) Hypomagnesemia Is this a current diagnosis for this admission?: Yes (7) Hypokalemia Is this a current diagnosis for this admission?: Yes (8) Shock Is this a current diagnosis for this admission?: Yes (9) Atrial fibrillation with RVR Is this a current diagnosis for this admission?: YesPlan: We appreciate assistance from cardiology. I will change her IV diltiazem to oral. However, if cardiology feels that changing the medication doses is appropriate please feel free to do so. (10) Urinary tract infection Is this a current diagnosis for this admission?: YesPlan: Preliminary results of the patient's urine culture suggest gram-positive cocci. Until the identification and sensitivities of the culture are known I will add vancomycin. - Time Time Spent with patient: 35 or more minutes - Inpatient Certification Medical Necessity: Need for IV Antibiotics, Risk of Complication if Not Cared For in Hospital - Plan Summary Plan Summary: The patient's Pradaxa is currently on hold secondary to GI bleeding. She is on mechanical DVT prophylaxis. I will add famotidine.
[2017-05-26] MEDS ORDERED: PHARMACY COMMUNICATION ORDER MC NR (08:15)
[2017-05-26] MEDS ORDERED: ONDANSETRON HCL INJ/PF 4 MG/2 ML SDV IV PRN (08:16)
[2017-05-26] MEDS ORDERED: VANCOMYCIN HCL 1,250 MG in DEXTROSE 5%-WATER 250 ML IV ONE (09:00)
[2017-05-26] MEDS: FAMOTIDINE INJ/PF 20 MG/2 ML SDV IV SCH ×2 (09:08→21:37)
[2017-05-26] MEDS: METOPROLOL TARTRATE 25 MG TABLET PO SCH ×2 (09:12→21:37)
[2017-05-26] MEDS: DEXTROSE 5%-1/2 NORMAL SALINE 1,000 ML IV PRN (09:18)
--- NOTE | 2017-05-26 09:58 | PDOC PROGRESS REPORT ---
Subjective Progress Note for:: 05/26/17 Subjective:: Overall feels much better. Abdominal pain has markedly improved since admission. Has small amount of bloody bowel movement this morning. Physical Exam Vital Signs: Temp Pulse Resp BP Pulse Ox 97.7 F 108 H 17 130/89 H 97 05/26/17 07:49 05/26/17 07:49 05/26/17 09:24 05/26/17 09:24 05/26/17 09:24 Intake & Output 05/25/17 05/26/17 05/27/17 06:59 06:59 06:59 Intake Total 50 2600 Output Total 150 2075 50 Balance -100 525 -50 Weight 75 kg 75.1 kg General appearance: PRESENT: no acute distress, cooperative Respiratory exam: PRESENT: rhonchi Cardiovascular exam: PRESENT: irregular rhythm GI/Abdominal exam: PRESENT: other - Soft, mildly distended, mild epigastric and left upper tenderness to palpation with no peritoneal signs Results Laboratory Results: 05/26/17 03:58 05/26/17 03:58 05/25/17 05/25/17 05/25/17 02:38 11:28 11:28 WBC 14.0 H RBC 3.37 L Hgb 10.1 L D Hct 30.5 L MCV 91 MCH 29.9 MCHC 33.0 RDW 12.6 Plt Count 106 L Seg Neutrophils % Not Reportable Lymphocytes % Not Reportable Monocytes % Not Reportable Eosinophils % Not Reportable Basophils % Not Reportable Absolute Neutrophils Not Reportable Absolute Lymphocytes Not Reportable Absolute Monocytes Not Reportable Absolute Eosinophils Not Reportable Absolute Basophils Not Reportable Sodium 134.8 L Potassium 4.7 D Chloride 108 H Carbon Dioxide 13 L Anion Gap 14 BUN 36 H Creatinine 1.78 H Est GFR ( Amer) 33 L Est GFR (Non-Af Amer) 27 L Glucose 127 H Lactic Acid Calcium 6.7 L* Ionized Calcium Darlene Phosphorus 2.6 Magnesium Total Bilirubin AST ALT Alkaline Phosphatase Total Protein Albumin Stool Occult Blood 05/25/17 05/25/17 05/25/17 11:28 14:22 20:32 WBC RBC Hgb Hct MCV MCH MCHC RDW Plt Count Seg Neutrophils % Lymphocytes % Monocytes % Eosinophils % Basophils % Absolute Neutrophils Absolute Lymphocytes Absolute Monocytes Absolute Eosinophils Absolute Basophils Sodium 134.6 L Potassium 4.2 Chloride 107 Carbon Dioxide 17 L Anion Gap 11 BUN 29 H Creatinine 1.54 H Est GFR ( Amer) 39 L Est GFR (Non-Af Amer) 32 L Glucose 112 H Lactic Acid 1.5 Calcium 6.8 L* Ionized Calcium Darlene Phosphorus Magnesium 2.2 Total Bilirubin AST ALT Alkaline Phosphatase Total Protein Albumin 2.6 L 2.5 L Stool Occult Blood 05/25/17 05/26/17 05/26/17 20:32 03:58 03:58 WBC 15.1 H RBC 3.34 L Hgb 10.0 L Hct 30.8 L MCV 92 MCH 29.8 MCHC 32.4 RDW 13.3 Plt Count 122 L Seg Neutrophils % Not Reportable Lymphocytes % Not Reportable Monocytes % Not Reportable Eosinophils % Not Reportable Basophils % Not Reportable Absolute Neutrophils Not Reportable Absolute Lymphocytes Not Reportable Absolute Monocytes Not Reportable Absolute Eosinophils Not Reportable Absolute Basophils Not Reportable Sodium 134.9 L Potassium 4.1 Chloride 106 Carbon Dioxide 18 L Anion Gap 11 BUN 25 H Creatinine 1.34 H Est GFR ( Amer) 45 L Est GFR (Non-Af Amer) 38 L Glucose 97 Lactic Acid Calcium 7.4 L Ionized Calcium Darlene 1.01 L Phosphorus 2.9 Magnesium 2.2 Total Bilirubin 0.4 AST 24 ALT 59 H Alkaline Phosphatase 89 Total Protein 4.9 L Albumin 2.5 L Stool Occult Blood 05/26/17 09:00 WBC RBC Hgb Hct MCV MCH MCHC RDW Plt Count Seg Neutrophils % Lymphocytes % Monocytes % Eosinophils % Basophils % Absolute Neutrophils Absolute Lymphocytes Absolute Monocytes Absolute Eosinophils Absolute Basophils Sodium Potassium Chloride Carbon Dioxide Anion Gap BUN Creatinine Est GFR ( Amer) Est GFR (Non-Af Amer) Glucose Lactic Acid Calcium Ionized Calcium Darlene Phosphorus Magnesium Total Bilirubin AST ALT Alkaline Phosphatase Total Protein Albumin Stool Occult Blood POSITIVE 05/25/17 05/25/17 05/25/17 08:54 11:28 14:22 Troponin I 0.025 0.038 NT-Pro-B Natriuret Pep 5500 H 05/25/17 20:32 Troponin I 0.038 NT-Pro-B Natriuret Pep Impressions: Abdomen/Pelvis CT 05/24/17 12:25 IMPRESSION: 1. Extensive colitis, predominantly in the transverse colon and proximal descending colon. Differential includes infectious/ inflammatory and vascular etiologies. No significant diverticulosis through this area. 2. Cholelithiasis with distended gallbladder. 3. Atherosclerosis. 4. Known L1 recent compression fracture. Abdomen Ultrasound 05/25/17 00:00 IMPRESSION: NORMAL MESENTERIC DOPPLER. NO DOPPLER EVIDENCE OF SIGNIFICANT STENOSIS. A large gallstone was identified within the gallbladder lumen. Assessment & Plan - Diagnosis (1) Ischemic colitis Is this a current diagnosis for this admission?: YesPlan: Improving with conservative measures. Would keep the patient n.p.o. until tenderness and bloody diarrhea has resolved.
[2017-05-26] MEDS ORDERED: METOPROLOL TARTRATE 50 MG TABLET PO SCH (10:00)
--- NOTE | 2017-05-26 10:45 | Physician Advisory Note ---
Physician Advisor ProgressNote .: [facility] I have reviewed the medical record for this patient. Physician Advisor Statement: Overall, documentation is EXCELLENT. Please consider documenting, in each note: 1. " [septic? hypovolemic? ...] Shock - due to " 2. Principal Dx requiring adm = dx #1 3. ARF - was this "due to ATN, related to shock"? Thanks so much! CK
[2017-05-26] MEDS: CIPROFLOXACIN 400 MG/D5W RTU 400 MG/200 ML RTUPB IV SCH ×2 (11:21→21:37)
--- NOTE | 2017-05-26 11:35 | RADIOLOGY REPORT (SQ) ---
EXAM DESCRIPTION: PICC INSERTION; U/S GUIDE FOR VASCULAR ACCESS; FLUORO/CV PLACEMENT COMPLETED DATE/TIME: 05/26/2017 11:15 am REASON FOR STUDY: IV ACCESS TO BE DONE IN RADIOLOGY PER MD; IV ACCESS; IV ACCES COMPARISON: AP chest 02/20/2012 FLUOROSCOPY TIME: 1 minutes 16 seconds 1 ultrasound and 1 digital radiographic images saved to PACS. TECHNIQUE: Fluoroscopic and ultrasound guided PICC placement. LIMITATIONS: None. PROCEDURE: After written consent and assessment were obtained, the patient was brought into the fluo roscopy room and place supine on the table. Ultrasound was used on the patient's right arm for PICC access. The right arm was prepped and draped in a sterile fashion along with the ultrasound probe. Th e entry site was anesthetized with 3.5 mL of 1% lidocaine. A 21 gauge 7 cm needle was advanced throug h the skin and into the right vein under live ultrasound guidance. An ultrasound image was saved to PACS confirming access site. A .018 guide wire was then inserted through the needle and into the katrina ous system. The needle was the removed and an 11 blade scalpel was used to make a 1cm skin incision. A 5 fr peel-away sheath was advanced over the wire and into the venous system. A measurement was the n made using the existing wire and live fluoroscopic guidance. The wire was then removed and the trim med. The PICC was advanced through the peel-away sheath and into the venous system. The peel-away she ath was removed and the catheter was adhered to the patients arm with a stat lock. The catheter was t hen aspirated and flushed and a sterile bandage was placed over the access site. A fluoroscopic spot image was saved to PACS confirming the catheter tip within the superior vena cava. PICC line was initially attempted from the left arm. Please note the multiple attempts at passing th e guidewire through the left axillary and subclavian veins was unsuccessful. No left basilic vein he matoma. IMPRESSION: SUCCESSFUL PLACEMENT OF A 5 FR DUAL LUMEN 32 CM PICC IN THE RIGHT BASILIC VEIN. COMMENT: Patient medication list reviewed: Yes- Quality ID# [id number]:Eligible professional attests to doc umenting in the medical record they obtained, updated, or reviewed the patient's current medications. . Quality ID 145: Final reports for procedures using fluoroscopy that document radiation exposure aga delia, or exposure time and number of fluorographic images (if radiation exposure indices are not avail able) Quality ID #76: The patient was prepped and draped using maximum sterile barrier technique including cap, mask, sterile gown, sterile gloves, a large sterile sheet, hand hygiene, and 2% Chlorhexidine fo r cutaneous antisepsis. When ultrasound is used, sterile ultrasound techniques are followed requiring sterile gel and sterile probes. TECHNICAL DOCUMENTATION: JOB ID: [id number] [employer]- All Rights Reserved
[2017-05-26] MEDS ORDERED: MORPHINE SULFATE 10 MG/ML INJ IV ONE (12:15)
[2017-05-26 13:57] LABS: PATH REVIEW PATHOLOGIST REVIEWED
[2017-05-26] MEDS ORDERED: DILTIAZEM HCL 30 MG TABLET PO SCH (14:00)
--- NOTE | 2017-05-26 16:47 | Progress Note ---
Provider Note Provider Note: Please note that the patient's shock is felt to be due to hypovolemia, cardiac causes and due to sepsis from infective colitis. All three etiologies were contributing to the patient's shock state on presentation.
[2017-05-26] MEDS ORDERED: OXYCODONE HCL IR 5 MG TABLET PO PRN (16:52)
[2017-05-26] MEDS ORDERED: TEMAZEPAM 7.5 MG CAPSULE PO PRN (16:53)
[2017-05-26] MEDS: NORMAL SALINE 10 ML SDV (AFTER EACH USE) IV PRN (21:37)
[2017-05-26] MEDS: NORMAL SALINE 10 ML SDV (SCHEDULED) IV SCH (21:37)
[2017-05-27] MEDS ORDERED: METRONIDAZOLE 500 MG/NS RTU 100 ML IV ONE ×2 (02:00→05:34)
[2017-05-27] MEDS: METRONIDAZOLE 500 MG/NS RTU 100 ML IV SCH ×4 (02:14→18:25)
[2017-05-27 05:49] LABS: HEMATOCRIT 30.2 % (36.0-47.0); HEMOGLOBIN 9.7 g/dL (12.0-15.5); HGB HCT DIFFERENCE -1.1; MEAN CORPUSCULAR HEMOGLOBIN 29.6 pg (27.0-33.4); MEAN CORPUSCULAR HGB CONC 32.3 g/dL (32.0-36.0); MEAN CORPUSCULAR VOLUME 92 fl (80-97); RED BLOOD COUNT 3.29 10^6/uL (3.72-5.28); RED CELL DISTRIBUTION WIDTH 13.1 % (11.5-14.0); WHITE BLOOD COUNT 10.8 10^3/uL (4.0-10.5)
[2017-05-27 06:05] LABS: BASOPHILS % (MANUAL) 0 % (0-2); EOSINOPHILS % (MANUAL) 1 % (0-6); LYMPHOCYTES % (MANUAL) 4 % (13-45); TOTAL CELLS COUNTED 100
[2017-05-27 06:06] LABS: RBC MORPHOLOGY COMMENT NORMO-CYTIC/CHROMIC; TOXIC VACUOLATION PRESENT
[2017-05-27 06:08] LABS: ANION GAP 8 (5-19); BLOOD UREA NITROGEN 18 mg/dL (7-20); CALCIUM 7.8 mg/dL (8.4-10.2); CARBON DIOXIDE 24 mmol/L (22-30); CHLORIDE 104 mmol/L (98-107); CREATININE RESULT 1.09 mg/dL (0.52-1.25); GLUCOSE 101 mg/dL (75-110); POTASSIUM 3.6 mmol/L (3.6-5.0); SODIUM 135.8 mmol/L (137-145)
[2017-05-27] MEDS ORDERED: VANCOMYCIN HCL 750 MG in DEXTROSE 5%-WATER 250 ML IV SCH (08:00)
[2017-05-27] MEDS: NORMAL SALINE 10 ML SDV (SCHEDULED) IV SCH ×2 (08:08→22:51)
[2017-05-27] MEDS: CIPROFLOXACIN 400 MG/D5W RTU 400 MG/200 ML RTUPB IV SCH ×2 (08:08→22:48)
[2017-05-27] MEDS: FAMOTIDINE INJ/PF 20 MG/2 ML SDV IV SCH ×2 (08:08→22:48)
[2017-05-27] MEDS: METOPROLOL TARTRATE 25 MG TABLET PO SCH ×2 (08:08→22:50)
[2017-05-27] MEDS: DEXTROSE 5%-1/2 NORMAL SALINE 1,000 ML IV PRN (08:10)
[2017-05-27] MEDS: DILTIAZEM HCL/D5W 125 ML IV PRN (09:10)
--- NOTE | 2017-05-27 11:16 | CONSULTATION REPORT E ---
Consultation Report NAME: SHOAIB NICOLAS : 1930 AGE: 86Y DATE: 05/25/2017 325 A TO: VARUN INFANTE M.D. FROM: ZAHRA FINK M.D. Requesting Physician CHIEF COMPLAINT: Atrial fibrillation with rapid ventricular response. PRESENT ILLNESS: This 86-year-old female whom I have been following for persistent atrial fibrillation, chronic, outpatient, apparently fell a couple of days ago, seen in the emergency room and was diagnosed as having L1 compression fracture. Subsequently went on to develop lower GI bleeding, possible ischemic colitis, extensive, involving the transverse colon and proximal descending colon based on abdominal pelvis CT. She presented to the ER on 06/03/17 and soon after that became hypotensive perhaps due to bloody diarrhea. Her initial blood pressure was normal but overnight she became hypotensive. After admission her p.o. Cardizem and metoprolol 75 b.i.d. were held and patient also went into rapid ventricular response, further lowering her blood pressure. She then received 3 L of intravenous saline without potassium supplement initially for her hypotension. This then restored her blood pressure to 125/59 at 7:41 a.m., but it was noted that her heart rate was 121 BPM. Due to no AV blocking agents on board, she was moved to ICU and was started on IV Cardizem 2.5 mg/hour only with little response in the ventricular response. Then I got a request for consultation. I ordered 10 mg IV Cardizem bolus and then 5 mg IV Cardizem drip to keep her ventricular response below 100. Meanwhile the patient's potassium dropped down to 3.3 and she was appropriately replaced by IV potassium supplement and also magnesium supplement for serum magnesium 1.5. The patient is currently in ICU where she was seen. PAST MEDICAL HISTORY: Atrial fibrillation: The patient is known to have chronic persistent atrial fibrillation with controlled ventricular response on both Lopressor 75 mg b.i.d. and Cardizem CD 240 mg once a day. Her CHADS2-VASC score is high at 5/9, but she is also known to have a HAS-BLED score 3 out of 6 and she has had known intermittent GI bleed, known to Dr. Mcgill and previous colonoscopy has shown her to have internal hemorrhoid, diverticulosis, right-sided colitis, polyp. Her last stool FOB positive was on 05/11/17 but at that time the hemoglobin was stable around 12.3, so she was not referred back to the stations superintendent for further investigation since the patient is known to have off and on minor bleeds from multiple possible sources. She is on reduced Pradaxa 75 mg b.i.d. for this purpose as well as most serum creatinine of 1.55, EGFR was 30 mL/min. Other medical problems include interstitial pulmonary diseases and bronchiectasis treated by Dr. Khan. 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 She is on long-term direct oral anticoagulant, Pradaxa 75 mg b.i.d. She has hypertension treated with chlorthalidone 12.5 mg daily and lisinopril 10 mg daily with blood pressure usually under control. She has hypercholesterolemia and her last liver profile was total cholesterol 116, triglycerides 199, LDL is 44, and HDL is 32, and she has been on Crestor 10 mg. Dictation interrupted here, to be continued. DICTATING PHYSICIAN: VARUN INFANTE M.D. [id number] PHY#: [id number] ID: [id number] JOB#: [id number] ACCT: [id number] cc:VARUN INFANTE M.D. > AMANDEEP
--- NOTE | 2017-05-27 11:51 | PDOC PROGRESS REPORT ---
Subjective Progress Note for:: 05/27/17 Subjective:: Reports that she has had some bloody diarrhea. Physical Exam Vital Signs: Temp Pulse Resp BP Pulse Ox 97.5 F 120 H 18 137/77 H 100 05/27/17 08:15 05/27/17 08:15 05/27/17 08:15 05/27/17 08:15 05/27/17 08:15 Intake & Output 05/26/17 05/27/17 05/28/17 06:59 06:59 06:59 Intake Total 2600 2568 Output Total 2075 3335 Balance 525 -767 Weight 75.1 kg 76.1 kg General appearance: PRESENT: no acute distress Eye exam: PRESENT: conjunctiva pink. ABSENT: scleral icterus Mouth exam: PRESENT: moist, tongue midline Neck exam: ABSENT: JVD Respiratory exam: PRESENT: clear to auscultation kim. ABSENT: rales, rhonchi, wheezes Cardiovascular exam: PRESENT: RRR. ABSENT: diastolic murmur, rubs, systolic murmur GI/Abdominal exam: PRESENT: normal bowel sounds, soft. ABSENT: distended, guarding, mass, organolmegaly, rebound, tenderness Extremities exam: ABSENT: calf tenderness, clubbing, pedal edema Neurological exam: PRESENT: alert, awake, oriented to person, oriented to place , oriented to time, oriented to situation, CN II-XII grossly intact. ABSENT: motor sensory deficit Psychiatric exam: PRESENT: appropriate affect Skin exam: PRESENT: dry, intact, warm. ABSENT: cyanosis, rash Results Laboratory Results: 05/27/17 05:20 05/27/17 05:20 05/25/17 05/27/17 05/27/17 11:28 02:25 05:20 WBC 14.0 H RBC 3.37 L Hgb 10.1 L D Hct 30.5 L MCV 91 MCH 29.9 MCHC 33.0 RDW 12.6 Plt Count 106 L Seg Neutrophils % Lymphocytes % Monocytes % Eosinophils % Basophils % Absolute Neutrophils Absolute Lymphocytes Absolute Monocytes Absolute Eosinophils Absolute Basophils Sodium 135.8 L Potassium 3.6 Chloride 104 Carbon Dioxide 24 Anion Gap 8 BUN 18 Creatinine 1.09 Est GFR ( Amer) 58 L Est GFR (Non-Af Amer) 48 L Glucose 101 Calcium 7.8 L Phosphorus Stool Occult Blood POSITIVE 05/27/17 05/27/17 05:20 05:20 WBC 10.8 H RBC 3.29 L Hgb 9.7 L Hct 30.2 L MCV 92 MCH 29.6 MCHC 32.3 RDW 13.1 Plt Count 157 Seg Neutrophils % Not Reportable Lymphocytes % Not Reportable Monocytes % Not Reportable Eosinophils % Not Reportable Basophils % Not Reportable Absolute Neutrophils Not Reportable Absolute Lymphocytes Not Reportable Absolute Monocytes Not Reportable Absolute Eosinophils Not Reportable Absolute Basophils Not Reportable Sodium Potassium Chloride Carbon Dioxide Anion Gap BUN Creatinine Est GFR ( Amer) Est GFR (Non-Af Amer) Glucose Calcium Phosphorus 2.3 L Stool Occult Blood 05/24/17 20:34 Stool - Stool - Final 05/24/17 20:34 Stool - Stool Stool Culture - Final NO SALMONELLA, SHIGELLA, CAMPYLOBACTER, OR E.COLI 0157 RECOVERED. NEGATIVE FOR SHIGA TOXINS 1&2. 05/25/17 05/25/17 05/25/17 08:54 11:28 14:22 Troponin I 0.025 0.038 NT-Pro-B Natriuret Pep 5500 H 05/25/17 20:32 Troponin I 0.038 NT-Pro-B Natriuret Pep Impressions: Abdomen/Pelvis CT 05/24/17 12:25 IMPRESSION: 1. Extensive colitis, predominantly in the transverse colon and proximal descending colon. Differential includes infectious/ inflammatory and vascular etiologies. No significant diverticulosis through this area. 2. Cholelithiasis with distended gallbladder. 3. Atherosclerosis. 4. Known L1 recent compression fracture. Abdomen Ultrasound 05/25/17 00:00 IMPRESSION: NORMAL MESENTERIC DOPPLER. NO DOPPLER EVIDENCE OF SIGNIFICANT STENOSIS. A large gallstone was identified within the gallbladder lumen. Guidance Fluoroscopy 05/26/17 00:00 IMPRESSION: SUCCESSFUL PLACEMENT OF A 5 FR DUAL LUMEN 32 CM PICC IN THE RIGHT BASILIC VEIN. Interventional Vascular Procedure 05/26/17 00:00 IMPRESSION: SUCCESSFUL PLACEMENT OF A 5 FR DUAL LUMEN 32 CM PICC IN THE RIGHT BASILIC VEIN. PICC Line Insertion 05/26/17 00:00 IMPRESSION: SUCCESSFUL PLACEMENT OF A 5 FR DUAL LUMEN 32 CM PICC IN THE RIGHT BASILIC VEIN. Assessment & Plan - Diagnosis (1) Shock Is this a current diagnosis for this admission?: YesPlan: This was from a combination of factors hypovolemia, infectious colitis, atrial fibrillation. She has responded to IV fluids. (2) Ischemic colitis Is this a current diagnosis for this admission?: YesPlan: has ischemic as well as infectious colitis. cont with cipro flagyl and ivf (3) Atrial fibrillation with RVR Is this a current diagnosis for this admission?: YesPlan: Patient is still in atrial fibrillation and diltiazem drip has been restarted. (4) Hypokalemia Is this a current diagnosis for this admission?: YesPlan: resolved (5) Hematuria Is this a current diagnosis for this admission?: YesPlan: resolved (6) Urinary tract infection Is this a current diagnosis for this admission?: YesPlan: pt is on cipro - Time Time Spent with patient: 25-34 minutes - Inpatient Certification Medical Necessity: Need For IV Fluids, Need for IV Antibiotics
[2017-05-27] MEDS ORDERED: DEXTROSE 40% GEL 15 GM TUBE PO PRN ×2 (17:29)
[2017-05-27] MEDS ORDERED: GLUCAGON,HUMAN RECOMB 1 MG INJ SUBCUT PRN (17:29)
[2017-05-27] MEDS ORDERED: DEXTROSE 50%-WATER 25 GM/50 ML DISP.SYRIN IV PRN ×2 (17:29)
[2017-05-27] MEDS ORDERED: DILTIAZEM HCL 60 MG TABLET PO ONE (19:00)
--- NOTE | 2017-05-27 22:23 | PROGRESS NOTE E ---
Progress Note NAME: SHOAIB NICOLAS : 1930 AGE: 86Y DATE: 05/27/2017 ROOM: 325 SUBJECTIVE: Patient presents with abdominal pain. CT scan shows colitis mainly in the transverse and left colon. She had been having blood diarrhea. She has presumed diagnosis of ischemic colitis at the current time and is being managed with that diagnosis. Patient's abdominal pain improved where it may be 2-3/10 at the current time. She did have a bowel movement that was soft and grossly not having any blood in it today. OBJECTIVE: VITAL SIGNS: Blood pressure is 147/72, temperature is 97.3, pulse is 111, respiratory rate is 20. ABDOMEN: Patient has minimal tenderness on the left side with no rebound or peritoneal signs being present. DIAGNOSTIC DATA: White blood cell count is 10.8, hemoglobin 9.7. ASSESSMENT: Colitis most likely secondary to ischemic colitis rather mesenteric colitis. She has improved with medical therapy including bowel rest and IV fluids along with IV antibiotics. Her white blood cell count is almost normalized with her having no further bloody bowel movements. PLAN: 1. May start her on water and possibly clear to full liquids in a.m. if she continues to improve. 2. Continue medical therapy. DICTATING PHYSICIAN: HAMLET ANDREW M.D. [id number] [facility] SAULT#: [id number] ID: [id number] JOB#: [id number] ACCT: [id number] cc: >
[2017-05-28] MEDS: METRONIDAZOLE 500 MG/NS RTU 100 ML IV SCH ×4 (00:46→18:44)
[2017-05-28] MEDS: DILTIAZEM HCL 60 MG TABLET PO SCH ×3 (00:49→13:10)
[2017-05-28 04:33] LABS: HEMATOCRIT 29.7 % (36.0-47.0); HEMOGLOBIN 9.8 g/dL (12.0-15.5); HGB HCT DIFFERENCE -0.3; MEAN CORPUSCULAR HEMOGLOBIN 29.8 pg (27.0-33.4); MEAN CORPUSCULAR HGB CONC 32.8 g/dL (32.0-36.0); MEAN CORPUSCULAR VOLUME 91 fl (80-97); RED BLOOD COUNT 3.28 10^6/uL (3.72-5.28); RED CELL DISTRIBUTION WIDTH 12.8 % (11.5-14.0)
[2017-05-28 04:59] LABS: ANION GAP 7 (5-19); BLOOD UREA NITROGEN 13 mg/dL (7-20); CALCIUM 8.1 mg/dL (8.4-10.2); CARBON DIOXIDE 26 mmol/L (22-30); CHLORIDE 101 mmol/L (98-107); CREATININE RESULT 1.01 mg/dL (0.52-1.25); GLUCOSE 98 mg/dL (75-110); POTASSIUM 3.5 mmol/L (3.6-5.0)
[2017-05-28 05:03] LABS: BASOPHILS % (MANUAL) 0 % (0-2); EOSINOPHILS % (MANUAL) 3 % (0-6); LYMPHOCYTES % (MANUAL) 5 % (13-45); TOTAL CELLS COUNTED 100
[2017-05-28 05:06] LABS: OVALOCYTES 1+; POIKILOCYTOSIS 1+
[2017-05-28] MEDS: METOPROLOL TARTRATE 25 MG TABLET PO SCH ×2 (10:52→22:50)
[2017-05-28] MEDS: CIPROFLOXACIN 400 MG/D5W RTU 400 MG/200 ML RTUPB IV SCH ×2 (10:53→22:54)
[2017-05-28] MEDS: NORMAL SALINE 10 ML SDV (SCHEDULED) IV SCH ×2 (10:53→22:56)
[2017-05-28] MEDS: FAMOTIDINE INJ/PF 20 MG/2 ML SDV IV SCH ×2 (10:53→22:54)
--- NOTE | 2017-05-28 12:48 | PDOC PROGRESS REPORT ---
Subjective Progress Note for:: 05/28/17 Subjective:: Denies any complaints today Physical Exam Vital Signs: Temp Pulse Resp BP Pulse Ox 97.8 F 94 22 H 113/68 98 05/28/17 11:47 05/28/17 11:47 05/28/17 11:47 05/28/17 11:47 05/28/17 11:47 Intake & Output 05/27/17 05/28/17 05/29/17 06:59 06:59 06:59 Intake Total 2568 2798 Output Total 3335 1450 700 Balance -767 1348 -700 Weight 76.1 kg 75.7 kg General appearance: PRESENT: no acute distress Eye exam: PRESENT: conjunctiva pink. ABSENT: scleral icterus Mouth exam: PRESENT: moist, tongue midline Neck exam: ABSENT: JVD Respiratory exam: PRESENT: clear to auscultation kim. ABSENT: rales, rhonchi, wheezes Cardiovascular exam: PRESENT: RRR. ABSENT: diastolic murmur, rubs, systolic murmur GI/Abdominal exam: PRESENT: normal bowel sounds, soft. ABSENT: distended, guarding, mass, organolmegaly, rebound, tenderness Extremities exam: ABSENT: calf tenderness, clubbing, pedal edema Neurological exam: PRESENT: alert, awake, oriented to person, oriented to place , oriented to time, oriented to situation, CN II-XII grossly intact. ABSENT: motor sensory deficit Psychiatric exam: PRESENT: appropriate affect Skin exam: PRESENT: dry, intact, warm. ABSENT: cyanosis, rash Results Laboratory Results: 05/28/17 04:15 05/28/17 04:15 05/28/17 05/28/17 04:15 04:15 WBC 9.0 RBC 3.28 L Hgb 9.8 L Hct 29.7 L MCV 91 MCH 29.8 MCHC 32.8 RDW 12.8 Plt Count 168 Seg Neutrophils % Not Reportable Lymphocytes % Not Reportable Monocytes % Not Reportable Eosinophils % Not Reportable Basophils % Not Reportable Absolute Neutrophils Not Reportable Absolute Lymphocytes Not Reportable Absolute Monocytes Not Reportable Absolute Eosinophils Not Reportable Absolute Basophils Not Reportable Sodium 134.0 L Potassium 3.5 L Chloride 101 Carbon Dioxide 26 Anion Gap 7 BUN 13 Creatinine 1.01 Est GFR ( Amer) > 60 Est GFR (Non-Af Amer) 52 L Glucose 98 Calcium 8.1 L 07/05/17 05:47 Stool - Stool Ova and Parasite Concentrate Exam - Final 05/25/17 05:47 Stool - Stool Ova and Parasites - Final 05/25/17 05:47 Stool - Stool Ova and Parasites - Final 05/24/17 20:34 Stool - Stool - Final 05/24/17 20:34 Stool - Stool Stool Culture - Final NO SALMONELLA, SHIGELLA, CAMPYLOBACTER, OR E.COLI 0157 RECOVERED. NEGATIVE FOR SHIGA TOXINS 1&2. 05/25/17 05/25/17 05/25/17 08:54 11:28 14:22 Troponin I 0.025 0.038 NT-Pro-B Natriuret Pep 5500 H 05/25/17 20:32 Troponin I 0.038 NT-Pro-B Natriuret Pep Impressions: Abdomen/Pelvis CT 05/24/17 12:25 IMPRESSION: 1. Extensive colitis, predominantly in the transverse colon and proximal descending colon. Differential includes infectious/ inflammatory and vascular etiologies. No significant diverticulosis through this area. 2. Cholelithiasis with distended gallbladder. 3. Atherosclerosis. 4. Known L1 recent compression fracture. Abdomen Ultrasound 05/25/17 00:00 IMPRESSION: NORMAL MESENTERIC DOPPLER. NO DOPPLER EVIDENCE OF SIGNIFICANT STENOSIS. A large gallstone was identified within the gallbladder lumen. Guidance Fluoroscopy 05/26/17 00:00 IMPRESSION: SUCCESSFUL PLACEMENT OF A 5 FR DUAL LUMEN 32 CM PICC IN THE RIGHT BASILIC VEIN. Interventional Vascular Procedure 05/26/17 00:00 IMPRESSION: SUCCESSFUL PLACEMENT OF A 5 FR DUAL LUMEN 32 CM PICC IN THE RIGHT BASILIC VEIN. PICC Line Insertion 05/26/17 00:00 IMPRESSION: SUCCESSFUL PLACEMENT OF A 5 FR DUAL LUMEN 32 CM PICC IN THE RIGHT BASILIC VEIN. Assessment & Plan - Diagnosis (1) Shock Is this a current diagnosis for this admission?: YesPlan: This was from a combination of factors hypovolemia, infectious colitis, atrial fibrillation. She has responded to IV fluids. (2) Ischemic colitis Is this a current diagnosis for this admission?: YesPlan: has ischemic colitis. cont with cipro flagyl and ivf (3) Atrial fibrillation with RVR Is this a current diagnosis for this admission?: YesPlan: Patient is in a regular rhythm (4) Hypokalemia Is this a current diagnosis for this admission?: YesPlan: resolved (5) Hematuria Is this a current diagnosis for this admission?: YesPlan: resolved (6) Urinary tract infection Is this a current diagnosis for this admission?: YesPlan: pt is on cipro - Time Time Spent with patient: 25-34 minutes - Inpatient Certification Medical Necessity: Need For IV Fluids
--- NOTE | 2017-05-28 13:13 | PROGRESS NOTE E ---
Progress Note NAME: SHOAIB NICOLAS : 1930 AGE: 86Y DATE: 05/28/2017 ROOM: 325 SUBJECTIVE: The patient presents with abdominal pain. CT scan of her abdomen and pelvis shows diffuse colon thickening mainly in the transverse and descending colon. She is also having bloody diarrhea, having clinical diagnosis of ischemic colitis. The patient denies any abdominal pain today. She had a normal bowel movement yesterday. She denies any nausea or vomiting. OBJECTIVE: ABDOMEN: The patient's abdomen is soft and nontender. VITAL SIGNS: Temperature is 97.9, pulse 98, blood pressure 118/82. DIAGNOSTIC DATA: White blood cell count of 9, hemoglobin 9.8. ASSESSMENT: 1. ABDOMINAL PAIN WITH COLONIC THICKENING ON THE TRANSVERSE AND DESCENDING SECONDARY TO MOST LIKELY ISCHEMIC COLITIS. This seems to be resolving with her clinically not having any symptoms with white count normalizing. I have recommended patient start on liquid diet and advance to a regular. If she does well overnight with no increase in white count, may be discharged home in the a.m. I would recommend that the patient follow up with Endoscopy for a colonoscopy in the next 4-6 weeks. 2. ANEMIA WITH HEMOGLOBIN DROPPING DOWN TO 9.8. She does not appear to be symptomatic at the current time. Consideration of starting her on iron therapy. PLAN: Full liquid diet. DICTATING PHYSICIAN: HAMLET ANDREW M.D. [id number] PHY#: [id number] ID: [id number] JOB#: [id number] ACCT: [id number] cc: >
[2017-05-28] MEDS ORDERED: DILTIAZEM HCL 240 MG CAPSULE.CR PO ONE (17:15)
[2017-05-28] MEDS ORDERED: POTASSIUM CHLORIDE 10 MEQ TABLET.SA PO ONE (18:00)
[2017-05-29] MEDS: METRONIDAZOLE 500 MG/NS RTU 100 ML IV SCH ×5 (02:37→23:17)
[2017-05-29 05:55] LABS: ANION GAP 8 (5-19); BLOOD UREA NITROGEN 19 mg/dL (7-20); CALCIUM 8.4 mg/dL (8.4-10.2); CARBON DIOXIDE 27 mmol/L (22-30); CHLORIDE 101 mmol/L (98-107); CREATININE RESULT 1.08 mg/dL (0.52-1.25); GLUCOSE 97 mg/dL (75-110); POTASSIUM 3.8 mmol/L (3.6-5.0); SODIUM 135.6 mmol/L (137-145)
[2017-05-29 05:58] LABS: HEMATOCRIT 30.9 % (36.0-47.0); HEMOGLOBIN 10.2 g/dL (12.0-15.5); HGB HCT DIFFERENCE -0.3; MEAN CORPUSCULAR HGB CONC 32.9 g/dL (32.0-36.0); MEAN CORPUSCULAR VOLUME 91 fl (80-97); RED BLOOD COUNT 3.38 10^6/uL (3.72-5.28); WHITE BLOOD COUNT 10.3 10^3/uL (4.0-10.5)
[2017-05-29 06:16] LABS: BAND NEUTROPHILS % (MANUAL) 2 % (3-5); BASOPHILS % (MANUAL) 0 % (0-2); EOSINOPHILS % (MANUAL) 8 % (0-6); LYMPHOCYTES % (MANUAL) 10 % (13-45); NUCLEATED RED BLOOD CELLS 3 /100 WBC (0); TOTAL CELLS COUNTED 100
[2017-05-29 06:18] LABS: PLATELET CLUMPS PRESENT
[2017-05-29 06:20] LABS: OVALOCYTES SLIGHT; POIKILOCYTOSIS SLIGHT; POLYCHROMASIA SLIGHT; TEAR DROP CELLS SLIGHT
[2017-05-29 06:21] LABS: TOXIC GRANULATION SLIGHT
[2017-05-29] MEDS: CIPROFLOXACIN 400 MG/D5W RTU 400 MG/200 ML RTUPB IV SCH ×2 (10:27→22:17)
[2017-05-29] MEDS: FAMOTIDINE INJ/PF 20 MG/2 ML SDV IV SCH ×2 (10:28→22:17)
[2017-05-29] MEDS: DILTIAZEM HCL 240 MG CAPSULE.CR PO SCH (10:28)
[2017-05-29] MEDS: METOPROLOL TARTRATE 25 MG TABLET PO SCH ×2 (10:28→22:17)
[2017-05-29] MEDS: NORMAL SALINE 10 ML SDV (SCHEDULED) IV SCH ×2 (10:29→22:18)
--- NOTE | 2017-05-29 11:16 | PDOC PROGRESS REPORT ---
Subjective Progress Note for:: 05/29/17 Subjective:: Denies any complaints today Physical Exam Vital Signs: Temp Pulse Resp BP Pulse Ox 97.7 F 97 19 126/64 H 95 05/29/17 07:57 05/29/17 07:57 05/29/17 07:57 05/29/17 07:57 05/29/17 07:57 Intake & Output 05/28/17 05/29/17 05/30/17 06:59 06:59 06:59 Intake Total 2798 2130 Output Total 1450 2200 Balance 1348 -70 Weight 75.7 kg 76.1 kg General appearance: PRESENT: no acute distress Eye exam: PRESENT: conjunctiva pink. ABSENT: scleral icterus Ear exam: PRESENT: normal external ear exam Neck exam: ABSENT: JVD Respiratory exam: PRESENT: clear to auscultation kim. ABSENT: rales, rhonchi, wheezes GI/Abdominal exam: PRESENT: normal bowel sounds, soft. ABSENT: distended, guarding, mass, organolmegaly, rebound, tenderness Extremities exam: ABSENT: calf tenderness, clubbing, pedal edema Neurological exam: PRESENT: alert, awake, oriented to person, oriented to place , oriented to time, oriented to situation, CN II-XII grossly intact. ABSENT: motor sensory deficit Psychiatric exam: PRESENT: appropriate affect Skin exam: PRESENT: dry, intact, warm. ABSENT: cyanosis, rash Results Laboratory Results: 05/29/17 05:30 05/29/17 05:30 05/29/17 05/29/17 05:30 05:30 WBC 10.3 RBC 3.38 L Hgb 10.2 L Hct 30.9 L MCV 91 MCH 30.0 MCHC 32.9 RDW 13.0 Plt Count 187 Seg Neutrophils % Not Reportable Lymphocytes % Not Reportable Monocytes % Not Reportable Eosinophils % Not Reportable Basophils % Not Reportable Absolute Neutrophils Not Reportable Absolute Lymphocytes Not Reportable Absolute Monocytes Not Reportable Absolute Eosinophils Not Reportable Absolute Basophils Not Reportable Sodium 135.6 L Potassium 3.8 Chloride 101 Carbon Dioxide 27 Anion Gap 8 BUN 19 Creatinine 1.08 Est GFR ( Amer) 58 L Est GFR (Non-Af Amer) 48 L Glucose 97 Calcium 8.4 05/25/17 05/25/17 05/25/17 08:54 11:28 14:22 Troponin I 0.025 0.038 NT-Pro-B Natriuret Pep 5500 H 05/25/17 20:32 Troponin I 0.038 NT-Pro-B Natriuret Pep Impressions: Abdomen/Pelvis CT 05/24/17 12:25 IMPRESSION: 1. Extensive colitis, predominantly in the transverse colon and proximal descending colon. Differential includes infectious/ inflammatory and vascular etiologies. No significant diverticulosis through this area. 2. Cholelithiasis with distended gallbladder. 3. Atherosclerosis. 4. Known L1 recent compression fracture. Abdomen Ultrasound 05/25/17 00:00 IMPRESSION: NORMAL MESENTERIC DOPPLER. NO DOPPLER EVIDENCE OF SIGNIFICANT STENOSIS. A large gallstone was identified within the gallbladder lumen. Guidance Fluoroscopy 05/26/17 00:00 IMPRESSION: SUCCESSFUL PLACEMENT OF A 5 FR DUAL LUMEN 32 CM PICC IN THE RIGHT BASILIC VEIN. Interventional Vascular Procedure 05/26/17 00:00 IMPRESSION: SUCCESSFUL PLACEMENT OF A 5 FR DUAL LUMEN 32 CM PICC IN THE RIGHT BASILIC VEIN. PICC Line Insertion 05/26/17 00:00 IMPRESSION: SUCCESSFUL PLACEMENT OF A 5 FR DUAL LUMEN 32 CM PICC IN THE RIGHT BASILIC VEIN. Assessment & Plan - Diagnosis (1) Shock Is this a current diagnosis for this admission?: YesPlan: This was from a combination of factors hypovolemia, infectious colitis, atrial fibrillation. She has responded to IV fluids. (2) Ischemic colitis Is this a current diagnosis for this admission?: YesPlan: has ischemic colitis. cont with cipro flagyl and ivf (3) Atrial fibrillation with RVR Is this a current diagnosis for this admission?: YesPlan: Patient is in a regular rhythm (4) Hypokalemia Is this a current diagnosis for this admission?: YesPlan: resolved (5) Hematuria Is this a current diagnosis for this admission?: YesPlan: resolved (6) Urinary tract infection Is this a current diagnosis for this admission?: YesPlan: pt is on cipro - Time Time Spent with patient: 25-34 minutes - Plan Summary Plan Summary: Patient requests to go to rehab.
[2017-05-29] MEDS: NORMAL SALINE 10 ML SDV (AFTER EACH USE) IV PRN (20:17)
[2017-05-30] MEDS: METRONIDAZOLE 500 MG/NS RTU 100 ML IV SCH (06:27)
[2017-05-30] MEDS: CIPROFLOXACIN 400 MG/D5W RTU 400 MG/200 ML RTUPB IV SCH (09:36)
[2017-05-30] MEDS: METOPROLOL TARTRATE 25 MG TABLET PO SCH (09:37)
[2017-05-30] MEDS: FAMOTIDINE INJ/PF 20 MG/2 ML SDV IV SCH (09:37)
[2017-05-30] MEDS: DILTIAZEM HCL 240 MG CAPSULE.CR PO SCH (09:37)
[2017-05-30] MEDS: NORMAL SALINE 10 ML SDV (SCHEDULED) IV SCH (09:38)
--- NOTE | 2017-05-30 10:49 | PDOC PROGRESS REPORT ---
Subjective Progress Note for:: 05/30/17 Subjective:: Denies any complaints today Physical Exam Vital Signs: Temp Pulse Resp BP Pulse Ox 97.9 F 114 H 20 119/77 100 05/30/17 07:12 05/30/17 07:12 05/30/17 07:12 05/30/17 07:12 05/30/17 08:54 Intake & Output 05/29/17 05/30/17 05/31/17 06:59 06:59 06:59 Intake Total 2130 1535 Output Total 2200 3000 Balance -70 -1465 Weight 76.1 kg 74.6 kg General appearance: PRESENT: no acute distress Eye exam: PRESENT: conjunctiva pink. ABSENT: scleral icterus Mouth exam: PRESENT: moist, tongue midline Neck exam: ABSENT: JVD Respiratory exam: PRESENT: clear to auscultation kim. ABSENT: rales, rhonchi, wheezes Cardiovascular exam: PRESENT: RRR. ABSENT: diastolic murmur, rubs, systolic murmur GI/Abdominal exam: PRESENT: normal bowel sounds, soft. ABSENT: distended, guarding, mass, organolmegaly, rebound, tenderness Extremities exam: ABSENT: calf tenderness, clubbing, pedal edema Neurological exam: PRESENT: alert, awake, oriented to person, oriented to place , oriented to time, oriented to situation, CN II-XII grossly intact. ABSENT: motor sensory deficit Psychiatric exam: PRESENT: appropriate affect Skin exam: PRESENT: dry, intact, warm. ABSENT: cyanosis, rash Results Laboratory Results: 05/29/17 05:30 05/29/17 05:30 05/24/17 20:47 Blood Blood Culture - Final NO GROWTH IN 5 DAYS 05/24/17 19:51 Blood Blood Culture - Final NO GROWTH IN 5 DAYS 05/25/17 05/25/17 05/25/17 08:54 11:28 14:22 Troponin I 0.025 0.038 NT-Pro-B Natriuret Pep 5500 H 05/25/17 20:32 Troponin I 0.038 NT-Pro-B Natriuret Pep Impressions: Abdomen/Pelvis CT 05/24/17 12:25 IMPRESSION: 1. Extensive colitis, predominantly in the transverse colon and proximal descending colon. Differential includes infectious/ inflammatory and vascular etiologies. No significant diverticulosis through this area. 2. Cholelithiasis with distended gallbladder. 3. Atherosclerosis. 4. Known L1 recent compression fracture. Abdomen Ultrasound 05/25/17 00:00 IMPRESSION: NORMAL MESENTERIC DOPPLER. NO DOPPLER EVIDENCE OF SIGNIFICANT STENOSIS. A large gallstone was identified within the gallbladder lumen. Guidance Fluoroscopy 05/26/17 00:00 IMPRESSION: SUCCESSFUL PLACEMENT OF A 5 FR DUAL LUMEN 32 CM PICC IN THE RIGHT BASILIC VEIN. Interventional Vascular Procedure 05/26/17 00:00 IMPRESSION: SUCCESSFUL PLACEMENT OF A 5 FR DUAL LUMEN 32 CM PICC IN THE RIGHT BASILIC VEIN. PICC Line Insertion 05/26/17 00:00 IMPRESSION: SUCCESSFUL PLACEMENT OF A 5 FR DUAL LUMEN 32 CM PICC IN THE RIGHT BASILIC VEIN. Assessment & Plan - Diagnosis (1) Shock Is this a current diagnosis for this admission?: YesPlan: This was from a combination of factors hypovolemia, infectious colitis, atrial fibrillation. She has responded to IV fluids. (2) Ischemic colitis Is this a current diagnosis for this admission?: YesPlan: has ischemic colitis. cont with cipro flagyl and ivf. The patient has improved well enough that she can be discharged to rehab when a bed becomes available (3) Atrial fibrillation with RVR Is this a current diagnosis for this admission?: YesPlan: Patient is in a regular rhythm (4) Hypokalemia Is this a current diagnosis for this admission?: YesPlan: resolved (5) Hematuria Is this a current diagnosis for this admission?: YesPlan: resolved (6) Urinary tract infection Is this a current diagnosis for this admission?: YesPlan: pt is on cipro. Growing out enterococcus and E. coli from urine culture. - Time Time Spent with patient: 25-34 minutes - Inpatient Certification Medical Necessity: Need Close Monitoring Due to Risk of Patient Decompensation - Plan Summary Plan Summary: Discharge to rehab when a bed becomes available
[2017-05-30 12:40] VITALS: BP 102/53
[2017-05-30] MEDS ORDERED: OXYCODONE-ACETAMINOPHEN 5-325 MG TABLET PO PRN (12:45)
[2017-05-30] MEDS ORDERED: MAGNESIUM HYDROXIDE SUSP 30 ML UDCUP PO PRN (12:48)
--- NOTE | 2017-05-30 14:06 | PDOC TRANSFER SUMMARY ---
General - Admit/Disc Date/PCP Admission Date/Primary Care Provider: 05/24/17 16:44 Discharge Date: 05/30/17 - Discharge Diagnosis (1) Shock Is this a current diagnosis for this admission?: Yes (2) Ischemic colitis Is this a current diagnosis for this admission?: Yes (3) Atrial fibrillation with RVR Is this a current diagnosis for this admission?: Yes (4) Hypokalemia Is this a current diagnosis for this admission?: Yes (5) Hematuria Is this a current diagnosis for this admission?: Yes (6) Urinary tract infection Is this a current diagnosis for this admission?: Yes - Additional Information Resuscitation Status: Full Code Discharge Diet: Cardiac Discharge Activity: Activity As Tolerated Home Medications: Alendronate Sodium [Fosamax 70 mg Tablet] 70 mg PO HEREDIA@1000 05/25/17 Dabigatran Etexilate Mesylate [Pradaxa 75 mg Capsule] 75 mg PO BID 05/25/17 Diltiazem HCl [Diltiazem ER] 240 mg PO DAILY 05/25/17 Famotidine [Pepcid 20 mg Tablet] 20 mg PO DAILY 05/25/17 Lidocaine [Lidoderm 5% (700 mg) Transdermal Patch] 1 patch TOP DAILY 05/25/17 Metoprolol Tartrate [Lopressor 50 mg Tablet] 75 mg PO Q12 05/25/17 Omeprazole 20 mg PO DAILY 05/25/17 Rosuvastatin Calcium [Crestor 10 mg Tablet] 10 mg PO DAILY 05/25/17 Oxycodone HCl/Acetaminophen [Percocet 5-325 mg Tablet] 1 tab PO Q4HP PRN #30 tablet 05/30/17 History of Present Illness Admission Date/PCP: 05/24/17 16:44 History of Present Illness: SHOAIB NICOLAS is a 86 year old female presented to the hospital with 2 episodes of bright red blood that appeared in her underwear. She is fairly certain that this happened with urination. She does not think that this is vaginal bleeding or rectal bleeding. She also presents with pain in her lower back. She tripped and fell last . She came to the emergency department and had a CT scan and was told that she had a compression fracture. She was discharged on medications for pain. She then developed nausea with vomiting after starting the pain pills. She has not been able to eat or drink. Pills are not working for her back. Yesterday, she went to see her physician and had 2 soft stools but no diarrhea since. She has not had any fevers, chills , sweats. She actually denies abdominal pain. She states that she has chronically been incontinent but she feels like she might be urinating less. Hospital Course Hospital Course: 86-year-old female admitted with rectal bleeding. She was found to have shock with some hypotension. So this most likely represented ischemic colitis and was treated with IV fluids. Because the possibility of infectious colitis she was treated with Cipro and Flagyl. Patient has completed 7 day course of antibiotics and had been stopped. The patient was evaluated by general surgery. She had complete resolution of her symptoms. She does have a history of atrial fibrillation has been rate controlled. She is being restarted on her Pradaxa. Patient is weak from being on bedrest and she is sent to the [facility] for rehab. The patient's other medical problems were stable during this hospitalization. Physical Exam Vital Signs: Temp Pulse Resp BP Pulse Ox 97.6 F 104 H 20 102/53 L 97 05/30/17 12:13 05/30/17 12:13 05/30/17 12:13 05/30/17 12:13 05/30/17 12:13 Intake & Output 05/29/17 05/30/17 05/31/17 06:59 06:59 06:59 Intake Total 2130 1535 120 Output Total 2200 3000 Balance -70 -1465 120 Weight 76.1 kg 74.6 kg General appearance: PRESENT: no acute distress Eye exam: PRESENT: conjunctiva pink. ABSENT: scleral icterus Mouth exam: PRESENT: moist, tongue midline Neck exam: ABSENT: JVD Respiratory exam: PRESENT: clear to auscultation kim. ABSENT: rales, rhonchi, wheezes Cardiovascular exam: PRESENT: RRR. ABSENT: diastolic murmur, rubs, systolic murmur GI/Abdominal exam: PRESENT: normal bowel sounds, soft. ABSENT: distended, guarding, mass, organolmegaly, rebound, tenderness Extremities exam: ABSENT: calf tenderness, clubbing, pedal edema Neurological exam: PRESENT: alert, awake, oriented to person, oriented to place , oriented to time, oriented to situation, CN II-XII grossly intact. ABSENT: motor sensory deficit Psychiatric exam: PRESENT: appropriate affect Skin exam: PRESENT: dry, intact, warm. ABSENT: cyanosis, rash Results Laboratory Results: 05/29/17 05:30 05/29/17 05:30 05/24/17 20:47 Blood Blood Culture - Final NO GROWTH IN 5 DAYS 05/24/17 19:51 Blood Blood Culture - Final NO GROWTH IN 5 DAYS 05/25/17 05/25/17 05/25/17 08:54 11:28 14:22 Troponin I 0.025 0.038 NT-Pro-B Natriuret Pep 5500 H 05/25/17 20:32 Troponin I 0.038 NT-Pro-B Natriuret Pep Impressions: Abdomen/Pelvis CT 05/24/17 12:25 IMPRESSION: 1. Extensive colitis, predominantly in the transverse colon and proximal descending colon. Differential includes infectious/ inflammatory and vascular etiologies. No significant diverticulosis through this area. 2. Cholelithiasis with distended gallbladder. 3. Atherosclerosis. 4. Known L1 recent compression fracture. Abdomen Ultrasound 05/25/17 00:00 IMPRESSION: NORMAL MESENTERIC DOPPLER. NO DOPPLER EVIDENCE OF SIGNIFICANT STENOSIS. A large gallstone was identified within the gallbladder lumen. Guidance Fluoroscopy 05/26/17 00:00 IMPRESSION: SUCCESSFUL PLACEMENT OF A 5 FR DUAL LUMEN 32 CM PICC IN THE RIGHT BASILIC VEIN. Interventional Vascular Procedure 05/26/17 00:00 IMPRESSION: SUCCESSFUL PLACEMENT OF A 5 FR DUAL LUMEN 32 CM PICC IN THE RIGHT BASILIC VEIN. PICC Line Insertion 05/26/17 00:00 IMPRESSION: SUCCESSFUL PLACEMENT OF A 5 FR DUAL LUMEN 32 CM PICC IN THE RIGHT BASILIC VEIN. Transfer Plan - Disposition Transfer Plan: Patient is transferred to [facility] - Time Spent with Patient Time spent with patient: Greater than 30 Minutes Qualifiers PATEINT BEING DISCHARGED WITH ANY OF THE FOLLOWING DIAGNOSIS?: No Plan Discharge Plan: Discharged to [facility]. Follow with primary care in 2 weeks. Time Spent: Greater than 30 Minutes
[2017-05-30] MEDS ORDERED: FAMOTIDINE 20 MG TABLET PO SCH (22:00)
== END 2017-05-30 20:00 | DRG 393 ==
LOC: ER 10:48 → UNDOADMIN 16:12 → EH 16:12 → 3N 17:00 → EH 17:00 → 3N 05-25 04:57 → ICU 05-25 04:57 → 3W 05-26 22:27
PROVIDERS: ADMIT Internal Medicine Pulmonary Disease; ATTEND Internal Medicine Pulmonary Disease
PROC: 02HV33Z Insertion of Infusion Device into Superior Vena Cava, Percutaneous Approach (ICD-10-PCS; principal; 2017-05-26)
PROC: B518ZZA Fluoroscopy of Superior Vena Cava, Guidance (ICD-10-PCS; 2017-05-26)
PROC: B548ZZA Ultrasonography of Superior Vena Cava, Guidance (ICD-10-PCS; 2017-05-26)
DX: K55.9 Vascular disorder of intestine, unspecified (principal); R57.1 Hypovolemic shock; A09 Infectious gastroenteritis and colitis, unspecified; I48.1 Persistent atrial fibrillation; N39.0 Urinary tract infection, site not specified; N17.9 Acute kidney failure, unspecified; E87.6 Hypokalemia; R31.9 Hematuria, unspecified; K80.20 Calculus of gallbladder without cholecystitis without obstruction; S32.010D Wedge compression fracture of first lumbar vertebra, subsequent encounter for fracture with routine healing; W01.0XXD Fall on same level from slipping, tripping and stumbling without subsequent striking against object, subsequent encounter; Y92.018 Other place in single-family (private) house as the place of occurrence of the external cause; K64.8 Other hemorrhoids; I13.10 Hypertensive heart and chronic kidney disease without heart failure, with stage 1 through stage 4 chronic kidney disease, or unspecified chronic kidney disease; N18.3 Chronic kidney disease, stage 3 (moderate); I07.1 Rheumatic tricuspid insufficiency; I25.10 Atherosclerotic heart disease of native coronary artery without angina pectoris; E78.5 Hyperlipidemia, unspecified; J44.9 Chronic obstructive pulmonary disease, unspecified; K21.9 Gastro-esophageal reflux disease without esophagitis; M19.90 Unspecified osteoarthritis, unspecified site; M81.0 Age-related osteoporosis without current pathological fracture; L98.9 Disorder of the skin and subcutaneous tissue, unspecified; E66.9 Obesity, unspecified; Z68.31 Body mass index [BMI] 31.0-31.9, adult; E83.42 Hypomagnesemia; D64.9 Anemia, unspecified; B96.20 Unspecified Escherichia coli [E. coli] as the cause of diseases classified elsewhere; B95.2 Enterococcus as the cause of diseases classified elsewhere; Z79.899 Other long term (current) drug therapy; Z86.010 Personal history of colon polyps; Z79.01 Long term (current) use of anticoagulants; Z98.49 Cataract extraction status, unspecified eye; Z88.8 Allergy status to other drugs, medicaments and biological substances; Z83.3 Family history of diabetes mellitus; Z82.3 Family history of stroke; Z82.49 Family history of ischemic heart disease and other diseases of the circulatory system
CPT/HCPCS: 36415; 36569; 74176; 76705; 76937; 77001; 80048; 80053; 81001; 82040; 82272; 82330; 82962; 83605; 83690; 83735; 83880; 84100; 84443; 84484; 85025; 87040; 87045; 87086; 87088; 87177; 87186; 87205; 87493; 89055; 93005; 93010; 93306; 93976; 96365; 96367; 99284; G8978-GP; G8979-GP; J0610; J0744; J1642; J2270; J3370; J3475; J3480; J3490; J7030; J7060; S0028

== ENCOUNTER 2017-07-21 11:51 | Day surgery (SDC) | payer MEDICARE, MEDICAID ==
[2017-07-21] MEDS ORDERED: ONDANSETRON HCL INJ/PF 4 MG/2 ML SDV ONE (13:03)
[2017-07-21] MEDS ORDERED: NALOXONE HCL INJ/PF 0.4 MG/1 ML SDV ONE (13:03)
[2017-07-21] MEDS ORDERED: DIPHENHYDRAMINE HCL 50 MG/ML VIAL ONE (13:03)
[2017-07-21] MEDS ORDERED: MIDAZOLAM 2 MG/2 ML INJ ONE ×2 (13:04)
[2017-07-21] MEDS ORDERED: FENTANYL CITRATE INJ/PF 100 MCG/2 ML AMPUL ONE (13:04)
[2017-07-21] MEDS ORDERED: EPINEPHRINE INJ 1 MG/10 ML DISP.SYRIN ONE (13:05)
[2017-07-21] MEDS ORDERED: GLUCAGON,HUMAN RECOMB 1 MG INJ ONE (13:05)
[2017-07-21] MEDS ORDERED: FLUMAZENIL INJ 0.5 MG/5 ML VIAL ONE (13:05)
--- NOTE | 2017-07-21 14:06 | Operative Report ---
Operative Report DATE OF SURGERY: 07/21/17 Operative Report: The risks, benefits and alternatives of the procedure including risks of bleeding, patient requiring surgery are explained to the patient detail and informed consent is obtained. Patient has brought back to the endoscopy suite and placed in the left, lateral decubital position. Timeout was called. Conscious sedation medications are provided. An Olympus videoscope was inserted into the patient's rectum. A rectal examination is done which did not reveal any masses, tears or fissures. An Olympus videoscope was inserted into the patient's rectum. It is carefully advanced all the way to the cecum. The cecum was identified by the usual anatomical landmarks including the ileocecal valve as well as the appendiceal office. Photodocumentation was obtained. The scope was then sequentially pulled back via the various segments of the colon including the ascending colon, hepatic flexure, transverse colon, splenic flexure, descending colon and to the rectosigmoid portions of the colon. Retroflexion maneuver was performed. Prep was good. PREOPERATIVE DIAGNOSIS: History of previous ischemic colitis POSTOPERATIVE DIAGNOSIS: Healing ischemic colitis noted at the splenic flexure area status post small biopsy OPERATION: Colonoscopy with biopsy SURGEON: MICHAEL RANDHAWA ANESTHESIA: Moderate Sedation - 2 mg of Versed provided conscious sedation monitoring time 30 minutes. TISSUE REMOVED OR ALTERED: Small shallow biopsy obtained to confirm ischemic colitis COMPLICATIONS: None. ESTIMATED BLOOD LOSS: None. INTRAOPERATIVE FINDINGS: As described above. PROCEDURE: Patient tolerated the procedure well. No immediate postprocedure complications are noted. Patient discharged in good condition. Discharge date 07/21/2017. Discharge diet: Regular. Discharge activity: Regular. 2-3 week follow-up to discuss findings. Patient is instructed to call the office or proceed to the emergency room should there be any further problems or questions. We will wait on pathology. Can resume her anticoagulation tomorrow.
[2017-07-21 15:16] VITALS: BP 131/70
== END 2017-07-21 15:03 | disposition home or self-care (01) ==
LOC: END 11:51
PROVIDERS: ATTEND Internal Medicine Gastroenterology
PROC: 0DBG8ZX Excision of Left Large Intestine, Via Natural or Artificial Opening Endoscopic, Diagnostic (ICD-10-PCS; principal; 2017-07-21 12:30)
DX: K62.5 Hemorrhage of anus and rectum (principal); K55.9 Vascular disorder of intestine, unspecified; I48.91 Unspecified atrial fibrillation; Z79.899 Other long term (current) drug therapy
CPT/HCPCS: 45380; 88305 ×2; J2250; J0171; J1200; J1610; J2310; J2405; J3010; J3490